=== PATIENT | male | born 1980 | race Native Hawaiian/Other Pacific Islander ===

== ENCOUNTER 2023-05-12 13:55 | Emergency (ER) | payer OTHER, MEDICAID, SELFPAY ==
[2023-05-12 14:07] VITALS: BP 161/101; PULSE 93; RESP 18; TEMP 36.7; O2SAT 98; BMI 29.0
[2023-05-12 14:41] LABS: Add Manual Diff / Slide Review NO; Basophils Absolute Auto 100 /uL (0-100); Basophils Percent Auto 0.9 % (0-2); Eosinophils Absolute Auto 100 /uL (0-450); Eosinophils Percent Auto 1.7 % (2-4); Hematocrit 51.8 % (41-53); Hemoglobin 17.9 g/dL (13.5-17.5); Lymphocytes Absolute Auto 1600 /uL (1100-4500); Lymphocytes Percent Auto 23.6 % (25-40); Mean Corpuscular HGB Conc 34.6 % (30-36); Mean Corpuscular Hemoglobin 29.7 PG (26-34); Monocytes Absolute Auto 500 /uL (0-900); Monocytes Percent Auto 7.8 % (3-14); Neutrophils Absolute Auto 4400 /uL (1500-7000); Platelet Count 218 X10^3/uL (150-400); Red Blood Cell Count 6.02 X10^6/uL (4.5-5.9); Red Cell Distribution Width 13.4 % (11.6-14.8); White Blood Cell Count 6.6 X10^3/uL (4.5-11.0)
[2023-05-12 14:48] LABS: Prothrombin Time 11.2 SECONDS (10.1-12.7)
[2023-05-12 14:50] LABS: PTT Partial Thromboplastin Tim 34 SECONDS (26-36)
[2023-05-12 14:54] LABS: Alanine Aminotransferase 30 IU/L (<50); Albumin 4.4 g/dL (3.5-5.0); Albumin Globulin Ratio 1.4 (1.0-2.8); Alkaline Phosphatase 66 U/L (38-126); Aspartate Aminotransferase 34 IU/L (17-59); BUN Creatinine Ratio 19.7 (6-22); Bilirubin Total 1.2 mg/dL (0.2-1.3); Blood Urea Nitrogen 14 mg/dL (9-20); Calcium 9.1 mg/dL (8.4-10.2); Carbon Dioxide 26 mmol/L (22-32); Chloride 103 mmol/L (98-107); Estimated Glomerular Filt Rate > 60 mL/min (>60); Globulin 3.2 g/dL (1.7-4.1); Glucose 128 mg/dL (70-100); HEMOLYSIS 44 (0-50); Potassium 3.6 mmol/L (3.4-5.1); Sodium 139 mmol/L (137-145); Total Protein 7.6 g/dL (6.3-8.2)
--- NOTE | 2023-05-12 15:35 | ED.GIBLEED ---
HPI - GI Bleed <Newton Ross PA-C - Last Filed: 05/12/23 16:25> General Chief complaint: GI Bleed Stated complaint: stomach hurting massive headache black stool Time Seen by Provider: 05/12/23 15:14 Source: patient Mode of arrival: Ambulatory History of Present Illness HPI Narrative: 42-year-old male with past medical history H pylori presents to the ED with 1 week of epigastric pain. Patient states that he feels constipated, his stools are dark and tarry over the last several days. Patient was seen on 05/08/2023 at [facility] ED, discharged home with a diagnosis of possible gastroenteritis. Patient had normal labs, CT scan showed some mild gastroenteritis. Patient was prescribed esomeprazole and Vicodin for pain relief. Patient is back in the ED today, unsure if he has taken the acid blockers. Patient complains of the same symptoms which include epigastric pain, a headache. Patient denies fever, chills, nausea, vomiting, flank pain, dysuria, lightheadedness, dizziness, syncope. Related Data Allergies Allergy/AdvReac Type Severity Reaction Status Date / Time No Known Drug Allergies Allergy Verified 05/12/23 14:07 Review of Systems <Newton Ross PA-C - Last Filed: 05/12/23 16:25> Constitutional Constitutional: Denies chills, Denies fatigue, Denies fever(s), Denies frequent falls, Denies lethargy and Denies weakness Eyes Eyes: Denies change in vision, Denies eye discharge, Denies irritation and Denies loss of vision ENT Ears, Nose, Mouth, and Throat: Denies change in voice, Denies dizziness, Denies neck pain, Denies sore throat and Denies throat swelling Cardiovascular Cardiovascular: Denies chest pain, Denies irregular heart rhythm, Denies lightheadedness, Denies palpitations, Denies dyspnea, Denies dyspnea on exertion and Denies orthopnea Respiratory Respiratory: Denies cough, Denies dyspnea, Denies dyspnea on exertion and Denies wheezing Gastrointestinal Gastrointestinal: Reports abdominal pain, Reports melena, Denies change in bowel habits, Reports constipation, Denies diarrhea, Denies nausea and Denies vomiting Musculoskeletal Musculoskeletal: Denies neck pain and Denies numbness Integumentary/Breasts Skin/Breast: Denies pruritus, Denies erythema, Denies rash and Denies wounds Neurologic Neurologic: Denies behavioral changes, Denies confusion, Denies dizziness, Denies frequent falls, Denies loss of vision, Denies numbness and Denies weakness Psychiatric Psychiatric: Denies anxiety, Denies behavioral changes, Denies confusion, Denies depression, Denies homicidal ideation and Denies suicidal ideation Endocrine Endocrine: Denies fatigue, Denies flushing and Denies palpitations Hematologic/Lymphatic Hematologic/Lymphatic: Denies easy bruising Allergic/Immunologic Allergic/Immunologic: Denies urticaria, Denies throat swelling and Denies wheezing Patient History <Newton Ross PA-C - Last Filed: 05/12/23 16:25> Social History Smoking Status: Current every day smoker Smoking Status: Current every day smoker tobacco type: cigarettes Exam <Newton Ross PA-C - Last Filed: 05/12/23 16:25> Narrative Exam Narrative: Const General:?cooperative, healthy appearing and comfortable [facility] Head:?normal to inspection Ears:?hearing grossly normal bilaterally Nose:?external nose normal Face and sinus:?normal facial exam and sinuses nontender Mouth:?oral mucosae normal Throat:?posterior oropharynx normal Eyes General:?appearance normal, both eyes and all related structures Neck Neck:?normal visual inspection and no lymphadenopathy noted Resp Effort & Inspection:?normal respiratory effort Auscultation:?clear to auscultation bilaterally Cardio Rate:?regular rate Rhythm:?regular rhythm GI Abdomen is soft, nondistended, nontender to palpation. There is no CVA tenderness. Neuro General:?patient alert, patient awake and patient oriented x3 Initial Vital Signs Initial Vital Signs: Vital Signs Temperature 98.1 F 05/12/23 14:07 Pulse Rate 93 H 05/12/23 14:07 Respiratory Rate 18 05/12/23 14:07 Blood Pressure 161/101 H 05/12/23 14:07 Pulse Oximetry 98 05/12/23 14:07 Oxygen Delivery Method Room Air 05/12/23 14:07 <Veda Bhagat DO - Last Filed: 05/20/23 00:35> Initial Vital Signs Initial Vital Signs: Vital Signs Temperature 98.1 F 05/12/23 14:07 Pulse Rate 93 H 05/12/23 14:07 Respiratory Rate 18 05/12/23 14:07 Blood Pressure 161/101 H 05/12/23 14:07 Pulse Oximetry 98 05/12/23 14:07 Oxygen Delivery Method Room Air 05/12/23 14:07 Course <Newton Ross PA-C - Last Filed: 05/12/23 16:25> Orders Ordered: Discontinued Medications Acetaminophen (Acetaminophen 325 Mg Tablet) 975 mg PO NOW ONE Stop: 05/12/23 15:42 Last Admin: 05/12/23 15:58 Dose: 975 mg Documented By: RACHEL Al Hydrox/Mg Hydrox/Simethicone 20 ml/ Lidocaine HCl 15 ml 0 ml PO NOW ONE Stop: 05/12/23 15:34 Last Admin: 05/12/23 16:08 Dose: 45 ml Documented By: RACHEL Famotidine (Famotidine 20 Mg Tablet) 40 mg PO NOW ONE Stop: 05/12/23 15:35 Last Admin: 05/12/23 15:59 Dose: 40 mg Documented By: RACHEL Ketorolac Tromethamine (Ketorolac 30 Mg/Ml Vial) 30 mg IM NOW ONE Stop: 05/12/23 15:42 Last Admin: 05/12/23 15:58 Dose: 30 mg Documented By: RACHEL Ondansetron HCl (Ondansetron 4 Mg/2 Ml Inj) 4 mg IV NOW PRN PRN Reason: Nausea And Vomiting Ondansetron HCl (Ondansetron 4 Mg Odt) 4 mg SL NOW PRN PRN Reason: Nausea And Vomiting Pantoprazole Sodium (Pantoprazole 40 Mg Vial) 80 mg IV NOW ONE Stop: 05/12/23 14:13 Last Admin: 05/12/23 15:54 Dose: Not Given Documented By: RACHEL Vital Signs Vital signs: Vital Signs - 8 hr 05/12/23 14:07 Temperature 98.1 F Pulse Rate 93 H Respiratory Rate 18 Blood Pressure 161/101 H Pulse Oximetry 98 Oxygen Delivery Method Room Air <Veda Bhagat DO - Last Filed: 05/20/23 00:35> Orders Ordered: Discontinued Medications Acetaminophen (Acetaminophen 325 Mg Tablet) 975 mg PO NOW ONE Stop: 05/12/23 15:42 Last Admin: 05/12/23 15:58 Dose: 975 mg Documented By: RACHEL Al Hydrox/Mg Hydrox/Simethicone 20 ml/ Lidocaine HCl 15 ml 0 ml PO NOW ONE Stop: 05/12/23 15:34 Last Admin: 05/12/23 16:08 Dose: 45 ml Documented By: RACHEL Famotidine (Famotidine 20 Mg Tablet) 40 mg PO NOW ONE Stop: 05/12/23 15:35 Last Admin: 05/12/23 15:59 Dose: 40 mg Documented By: RACHEL Ketorolac Tromethamine (Ketorolac 30 Mg/Ml Vial) 30 mg IM NOW ONE Stop: 05/12/23 15:42 Last Admin: 05/12/23 15:58 Dose: 30 mg Documented By: RACHEL Ondansetron HCl (Ondansetron 4 Mg/2 Ml Inj) 4 mg IV NOW PRN PRN Reason: Nausea And Vomiting Ondansetron HCl (Ondansetron 4 Mg Odt) 4 mg SL NOW PRN PRN Reason: Nausea And Vomiting Pantoprazole Sodium (Pantoprazole 40 Mg Vial) 80 mg IV NOW ONE Stop: 05/12/23 14:13 Last Admin: 05/12/23 15:54 Dose: Not Given Documented By: RACHEL Vital Signs Vital signs: Vital Signs - 8 hr 05/12/23 14:07 Temperature 98.1 F Pulse Rate 93 H Respiratory Rate 18 Blood Pressure 161/101 H Pulse Oximetry 98 Oxygen Delivery Method Room Air MDM - GI Bleed <Newton Ross PA-C - Last Filed: 05/12/23 16:25> Lab Data 05/12/23 14:26 05/12/23 14:26 Labs: Lab Results 05/12/23 05/12/23 Range/Units 14:26 15:45 WBC 6.6 (4.5-11.0) X10^3/uL RBC 6.02 H (4.5-5.9) X10^6/uL Hgb 17.9 H (13.5-17.5) g/dL Hct 51.8 (41-53) % MCV 86.0 (80-100) fL MCH 29.7 (26-34) PG MCHC 34.6 (30-36) % RDW 13.4 (11.6-14.8) % Plt Count 218 (150-400) X10^3/uL Neut % (Auto) 66.0 (50-75) % Lymph % (Auto) 23.6 L (25-40) % [place] % (Auto) 7.8 (3-14) % Eos % (Auto) 1.7 L (2-4) % Baso % (Auto) 0.9 (0-2) % Neut # (Auto) 4400 (8739-0069) /uL Lymph # (Auto) 1600 (7314-9899) /uL [place] # (Auto) 500 (0-900) /uL Eos # (Auto) 100 (0-450) /uL Baso # (Auto) 100 (0-100) /uL PT 11.2 (10.1-12.7) SECONDS INR 1.0 (0.9-1.3) APTT 34 (26-36) SECONDS Sodium 139 (137-145) mmol/L Potassium 3.6 (3.4-5.1) mmol/L Chloride 103 (98-107) mmol/L Carbon Dioxide 26 (22-32) mmol/L BUN 14 (9-20) mg/dL Creatinine 0.71 (0.66-1.25) mg/dL Estimated GFR > 60 (>60) mL/min BUN/Creatinine Ratio 19.7 (6-22) Glucose 128 H (70-100) mg/dL Calcium 9.1 (8.4-10.2) mg/dL Total Bilirubin 1.2 (0.2-1.3) mg/dL AST 34 (17-59) IU/L ALT 30 (<50) IU/L Alkaline Phosphatase 66 (38-126) U/L Total Protein 7.6 (6.3-8.2) g/dL Albumin 4.4 (3.5-5.0) g/dL Globulin 3.2 (1.7-4.1) g/dL Albumin/Globulin Ratio 1.4 (1.0-2.8) Lipase 343 H (23-300) U/L Blood Type O Positive Antibody Screen Negative MDM Narrative Medical decision making narrative: 42-year-old male with past medical history H pylori presents to the ED with 1 week of epigastric pain. Concern for H pylori vs gastritis vs peptic ulcer vs GERD versus other. Unlikely pancreatitis since patient had a full workup with negative lipase and normal CT. Will give Pepcid AC, GI cocktail, Toradol, Tylenol for symptoms. Will obtain labs to recheck H&H. H&H is stable compared to the numbers from his [facility] ED visit. Lipase elevated to 343, however not high enough to be indicative of pancreatitis. All other labs within normal limits as well. Recommend continued use of acid blockers. Recommend follow-up with GI. ED return precautions discussed with patient. Patient verbalized understanding. Medical records reviewed: Yes <Veda Bhagat, DO - Last Filed: 05/20/23 00:35> Lab Data Labs: Lab Results 05/12/23 05/12/23 Range/Units 14:26 15:45 WBC 6.6 (4.5-11.0) X10^3/uL RBC 6.02 H (4.5-5.9) X10^6/uL Hgb 17.9 H (13.5-17.5) g/dL Hct 51.8 (41-53) % MCV 86.0 (80-100) fL MCH 29.7 (26-34) PG MCHC 34.6 (30-36) % RDW 13.4 (11.6-14.8) % Plt Count 218 (150-400) X10^3/uL Neut % (Auto) 66.0 (50-75) % Lymph % (Auto) 23.6 L (25-40) % [place] % (Auto) 7.8 (3-14) % Eos % (Auto) 1.7 L (2-4) % Baso % (Auto) 0.9 (0-2) % Neut # (Auto) 4400 (0406-2118) /uL Lymph # (Auto) 1600 (9843-3946) /uL [place] # (Auto) 500 (0-900) /uL Eos # (Auto) 100 (0-450) /uL Baso # (Auto) 100 (0-100) /uL PT 11.2 (10.1-12.7) SECONDS INR 1.0 (0.9-1.3) APTT 34 (26-36) SECONDS Sodium 139 (137-145) mmol/L Potassium 3.6 (3.4-5.1) mmol/L Chloride 103 (98-107) mmol/L Carbon Dioxide 26 (22-32) mmol/L BUN 14 (9-20) mg/dL Creatinine 0.71 (0.66-1.25) mg/dL Estimated GFR > 60 (>60) mL/min BUN/Creatinine Ratio 19.7 (6-22) Glucose 128 H (70-100) mg/dL Calcium 9.1 (8.4-10.2) mg/dL Total Bilirubin 1.2 (0.2-1.3) mg/dL AST 34 (17-59) IU/L ALT 30 (<50) IU/L Alkaline Phosphatase 66 (38-126) U/L Total Protein 7.6 (6.3-8.2) g/dL Albumin 4.4 (3.5-5.0) g/dL Globulin 3.2 (1.7-4.1) g/dL Albumin/Globulin Ratio 1.4 (1.0-2.8) Lipase 343 H (23-300) U/L Blood Type O Positive Antibody Screen Negative Discharge Plan Departure Patient Disposition: Home Clinical Impression: Epigastric pain Instructions: DI for Epigastric Pain Activity Restrictions/Additional Instructions: You were evaluated in the ED today for abdominal pain and a headache. Your labs were normal today. Your symptoms could be due to gastroenteritis which can be caused by food poisoning, acid reflux, gastritis, or H pylori. Please follow-up with your primary care provider and GI specialist for further evaluation. Please continue to take the acid renetta as prescribed for the next month. Return to the ED if you have worsening symptoms, lightheadedness, shortness of breath. Referrals: Miscellaneous,Doctor, MD [Primary Care Provider] - Stand Alone Forms: Patient Portal/API ED Sign-out <Veda Bhagat DO - Last Filed: 05/20/23 00:35> Cosign ED Attending Rupesh Attestation: I was immediately available in the department for consultation.
[2023-05-12] MEDS: KETOROLAC 30 MG/ML VIAL IM (15:58)
[2023-05-12] MEDS: ACETAMINOPHEN 325 MG TABLET 975 MG PO (15:58)
[2023-05-12] MEDS: FAMOTIDINE 20 MG TABLET 40 MG PO (15:59)
[2023-05-12 16:02] LABS: Lipase 343 U/L (23-300)
[2023-05-12] MEDS: MAG HYDROX/ALUMINUM/SIMETH SUS 20 ML, LIDOCAINE VISCOUS 2% 15 ML PO (16:08)
--- NOTE | 2023-05-12 16:27 | PC.NURSE ---
NIO placed, but not placed by provider Cody. Provider Cody did not want those orders to be done. see provider note for assessment. Pt tolerating PO fluids well. no acute medical distress noted. awake, alert, airway patent, abd soft, non tender, endorses burning in epigastric region consistent with GERD, medicated per emar.
[2023-05-12 16:33] VITALS: BP 160/90; PULSE 83; RESP 18; O2SAT 98
== END 2023-05-12 16:34 | disposition home or self-care (01) ==
PROVIDERS: Emergency Medicine; Emergency Provider Student in an Organized Health Care Education/Training Program
DX: R10.13 Epigastric pain (principal); R51.9 Headache, unspecified
CPT/HCPCS: 80053; 83690; 85025; 85610; 85730; 86850; 86900; 86901; 93005; 96372; 99283; 99284; A9270; J1885

== ENCOUNTER 2023-12-30 22:26 | Emergency (ER) | payer OTHER, MEDICAID, SELFPAY ==
[2023-12-30] VITALS (21 sets, daily range): BP systolic 111–155; BP diastolic 73–101; PULSE 87–98; RESP 28–54; TEMP 35.9; O2SAT 97–100; BMI 27.3
--- NOTE | 2023-12-30 22:29 | EKG_ITS ---
[address] [address] Test Date: 2023-12-30 Pat Name: Antonio Arnold Department: Room: Gender: Male [employer]: : 1980 Requested By: Order Number: [id number] Reading MD: Stan Arellano Measurements Intervals [place] Rate: 98 P: 77 NV: 162 QRS: -21 QRSD: 92 T: 217 QT: 414 QTc: 528 Interpretive Statements Sinus rhythm with premature atrial complexes Possible Left atrial enlargement Minimal voltage criteria for LVH, may be normal variant ( Trout product ) Marked T wave abnormality, consider anterolateral ischemia Prolonged QT (transferred to [facility] for ACS) Electronically Signed On 12-31-2023 15:10:07 PDT by Stan Arellano
--- NOTE | 2023-12-30 22:33 | DI.RAD.S_ITS ---
PROCEDURE: XR CHEST 1V INDICATIONS: chest pain TECHNIQUE: One view of the chest was acquired. COMPARISON: [facility], , CHEST 2 VIEW, 10/24/2015, 11:54. FINDINGS: Surgical changes and devices: Median sternotomy wires are seen. Lungs and pleura: Mild pulmonary vascular congestion is noted. No focal infiltrate. No pleural effusions or pneumothorax. Mediastinum: Mediastinal contours appear normal. Heart size is mildly enlarged. Bones and chest wall: No suspicious bony lesions. Overlying soft tissues appear unremarkable. IMPRESSION: Cardiomegaly and mild congestion. No focal infiltrate, pleural effusion or pneumothorax. Dictated by: Cory Phelps M.D. on 12/30/2023 at 22:48 Approved by: Cory Phelps M.D. on 12/30/2023 at 22:49
[2023-12-30] MEDS: ASPIRIN 81 MG CHEW TAB 324 MG PO (22:44)
[2023-12-30 22:48] LABS: Add Manual Diff / Slide Review NO; Basophils Absolute Auto 0 /uL (0-100); Basophils Percent Auto 0.4 % (0-2); Eosinophils Absolute Auto 0 /uL (0-450); Eosinophils Percent Auto 0.4 % (2-4); Hematocrit 51.2 % (41-53); Hemoglobin 17.2 g/dL (13.5-17.5); Lymphocytes Absolute Auto 1400 /uL (1100-4500); Lymphocytes Percent Auto 11.2 % (25-40); Mean Corpuscular HGB Conc 33.5 % (30-36); Mean Corpuscular Hemoglobin 29.8 PG (26-34); Mean Corpuscular Volume 89.1 fL (80-100); Monocytes Absolute Auto 800 /uL (0-900); Monocytes Percent Auto 6.7 % (3-14); Neutrophils Absolute Auto 10000 /uL (1500-7000); Neutrophils Percent Auto 81.3 % (50-75); Platelet Count 211 X10^3/uL (150-400); Red Blood Cell Count 5.75 X10^6/uL (4.5-5.9); Red Cell Distribution Width 13.5 % (11.6-14.8); White Blood Cell Count 12.3 X10^3/uL (4.5-11.0)
[2023-12-30 22:50] LABS: INR 1.1 (0.9-1.3)
[2023-12-30 22:52] LABS: PTT Partial Thromboplastin Tim 31 SECONDS (25.1-36.5)
[2023-12-30 22:55] LABS: Alanine Aminotransferase 58 IU/L (<50); Albumin 4.1 g/dL (3.5-5.0); Albumin Globulin Ratio 1.4 (1.0-2.8); Alkaline Phosphatase 80 U/L (38-126); Aspartate Aminotransferase 33 IU/L (17-59); BUN Creatinine Ratio 14.9 (6-22); Bilirubin Total 1.1 mg/dL (0.2-1.3); Blood Urea Nitrogen 14 mg/dL (9-20); Carbon Dioxide 29 mmol/L (22-32); Chloride 104 mmol/L (98-107); Creatine Kinase 79 U/L (55-170); Estimated Glomerular Filt Rate > 60 mL/min (>60); Glucose 137 mg/dL (70-100); HEMOLYSIS < 15 (0-50); Lipase 108 U/L (23-300); Magnesium 1.9 mg/dL (1.6-2.3); Potassium 3.4 mmol/L (3.4-5.1); Sodium 138 mmol/L (137-145); Total Protein 7.1 g/dL (6.3-8.2)
[2023-12-30] MEDS: NITROGLYCERIN 0.4 MG SL TAB SL (23:02)
--- NOTE | 2023-12-30 23:05 | ED.CHESTPAIN ---
HPI - Chest Pain General Chief Complaint: Chest Pain Stated Complaint: Chest pain, abdominal Time Seen by Provider: 12/30/23 22:47 Source: patient Mode of arrival: Ambulatory History of Present Illness HPI narrative: 42-year-old male with history congenital heart disease treated age 15 at [facility] in [facility], has had recent dry cough for 3 days, seen at [facility] on 12/27/2023 with respiratory illness symptoms, negative respiratory swab, negative chest x-ray, sent home, no EKG your labs done per patient, still coughing, still feeling some shortness of breath, and over the last few hours having left-sided chest discomfort, nonpleuritic, but some radiation to the left back, left scapula, left upper quadrant. Denies pain to right or left leg. No history of aortic problems known. He does not know the nature of his congenital heart disease, believes there were ?holes? in his heart that were repaired, does not recognize VSD and/or ASD diagnoses. He believes there was only a single procedure done at age 15. He has not aware of any heart valve being replaced. He has not aware of any aortic surgeries or aorta problems. Related Data Allergies Allergy/AdvReac Type Severity Reaction Status Date / Time No Known Drug Allergies Allergy Verified 12/30/23 22:32 Review of Systems Review of Systems Narrative: as per HPI Patient History Social History Smoking Status: Current every day smoker Smoking Status: Current every day smoker tobacco type: cigarettes Exam Narrative Exam Narrative: GENERAL: Well-developed patient, in moderate distress, diaphoretic. HEAD: Atraumatic. Normocephalic. EYES: Pupils equal round and reactive. Extraocular motions intact. No scleral icterus. No injection or drainage. ENT: Nose without bleeding, purulent drainage. Throat without erythema, tonsillar hypertrophy or exudate. Airway patent. NECK: Trachea midline. Non tender CARDIOVASCULAR: Regular rate and rhythm without murmurs, gallops, or rubs. RESPIRATORY: Clear to auscultation. Breath sounds equal bilaterally. No wheezes, rales, or rhonchi. Well-healed old sternotomy scar GASTROINTESTINAL: Abdomen soft, non-tender, nondistended. EXTREMITIES: No edema or joint tenderness. BACK: Nontender without deformity or crepitance. No flank tenderness. NEURO: AOx3. SKIN: No rash or erythema of visible areas Initial Vital Signs Initial Vital Signs: Vital Signs Temperature 96.7 F L 12/30/23 22:30 Pulse Rate 98 H 12/30/23 22:30 Respiratory Rate 28 H 12/30/23 22:30 Pulse Oximetry 100 12/30/23 22:30 Oxygen Delivery Method Room Air 12/30/23 22:30 Course Orders Ordered: ED Orders 12/31/23 06:50 PTT [PTT Partial Thromboplastin Loco] Stat Discontinued Medications Aspirin (Aspirin 81 Mg Chew Tab) 324 mg PO NOW ONE Stop: 12/30/23 22:34 Last Admin: 12/30/23 22:44 Dose: 324 mg Documented By: ISAIAH Aspirin (Aspirin Ec 325 Mg Tablet) 325 mg PO NOW ONE Stop: 12/31/23 00:17 Last Admin: 12/31/23 00:23 Dose: Not Given Documented By: ISAIAH Heparin Sodium (Porcine) (Heparin 5,000 Unit/Ml Vial) 4,000 unit 50 unit/kg (4000 unit) IV NOW ONE Stop: 12/31/23 00:18 Last Admin: 12/31/23 00:43 Dose: Not Given Documented By: ISAIAH Heparin Sodium (Porcine) (Heparin 5,000 Unit/Ml Vial) 5,000 unit 50 unit/kg (4000 unit) IV NOW ONE Stop: 12/31/23 00:46 Last Admin: 12/31/23 00:53 Dose: 5,000 unit Documented By: ISAIAH Sodium Chloride (Normal Saline 0.9%) 1,000 mls @ 1,000 mls/hr IV BOLUS ONE Stop: 12/31/23 00:12 Last Infusion: 12/31/23 00:44 Dose: Infused Documented By: Admin: 12/30/23 23:24 Dose: 1,000 mls/hr Documented By: ISAIAH Nitroglycerin (Nitroglycerin) 50 mg in 250 mls @ 1.5 mls/hr IV TITRATE FEROZ; Protocol Last Titration: 12/31/23 07:59 Dose: 17.5 mcg/min, 5.25 mls/hr Documented By: Titration: 12/31/23 02:56 Dose: 17.5 mcg/min, 5.25 mls/hr Documented By: Titration: 12/31/23 02:37 Dose: 15 mcg/min, 4.5 mls/hr Documented By: Titration: 12/31/23 02:05 Dose: 12.5 mcg/min, 3.75 mls/hr Documented By: Titration: 12/31/23 01:42 Dose: 10 mcg/min, 3 mls/hr Documented By: Admin: 12/31/23 00:50 Dose: 5 mcg/min, 1.5 mls/hr Documented By: ISAIAH Heparin Sodium/Dextrose (Heparin Drip) 25,000 unit in 500 mls @ 19.051 mls/hr IV CONT FEROZ; Protocol Last Titration: 12/31/23 07:59 Dose: 12 units/kg/hr, 19.051 mls/hr Documented By: AYAAN Co-signed By: IVY Admin: 12/31/23 00:46 Dose: 12 units/kg/hr, 19.051 mls/hr Documented By: ISAIAH Co-signed By: Lorazepam (Lorazepam 2 Mg/Ml Inj) 0.5 mg IV NOW ONE Stop: 12/31/23 04:40 Last Admin: 12/31/23 04:44 Dose: 0.5 mg Documented By: Metoprolol Tartrate (Metoprolol Tartrate 5 Mg/5 Ml Inj) 5 mg IV NOW ONE Stop: 12/31/23 00:16 Last Admin: 12/31/23 00:31 Dose: 5 mg Documented By: ISAIAH Morphine Sulfate (Morphine 4 Mg/Ml Inj) 4 mg IV NOW ONE Stop: 12/30/23 23:09 Last Admin: 12/30/23 23:11 Dose: 4 mg Documented By: CHRISTOPHER Morphine Sulfate (Morphine 4 Mg/Ml Inj) 4 mg IV NOW ONE Stop: 12/30/23 23:32 Last Admin: 12/30/23 23:44 Dose: 4 mg Documented By: ISAIAH Morphine Sulfate (Morphine 4 Mg/Ml Inj) 4 mg IV NOW ONE Stop: 12/31/23 01:55 Last Admin: 12/31/23 02:01 Dose: 4 mg Documented By: Nitroglycerin (Nitroglycerin 0.4 Mg Sl Tab) 0.4 mg SL [id number] PRN PRN Reason: Chest Pain Last Admin: 12/30/23 23:02 Dose: 0.4 mg Documented By: [facility] Vital Signs Vital signs: Vital Signs - 8 hr 12/30/23 23:30 12/30/23 23:44 12/30/23 23:45 Pulse Rate 95 H 93 H 94 H Respiratory Rate 47 H 31 H Blood Pressure Pulse Oximetry 97 97 100 12/30/23 23:46 12/30/23 23:46 12/30/23 23:50 Pulse Rate 91 H 92 H Respiratory Rate 45 H 43 H Blood Pressure 118/73 Pulse Oximetry 99 98 12/30/23 23:55 12/31/23 00:00 12/31/23 00:01 Pulse Rate 93 H 95 H Respiratory Rate 42 H 37 H Blood Pressure 117/99 H Pulse Oximetry 98 99 12/31/23 00:01 12/31/23 00:05 12/31/23 00:10 Pulse Rate 95 H 93 H 95 H Respiratory Rate 44 H 44 H 41 H Blood Pressure Pulse Oximetry 99 98 98 12/31/23 00:15 12/31/23 00:20 12/31/23 00:28 Pulse Rate 97 H 96 H 95 H Respiratory Rate 35 H 27 H 60 H Blood Pressure Pulse Oximetry 98 98 81 L 12/31/23 00:30 12/31/23 00:30 12/31/23 00:35 Pulse Rate 97 H 93 H Respiratory Rate 46 H 34 H Blood Pressure 142/92 H Pulse Oximetry 100 100 12/31/23 00:39 12/31/23 00:40 12/31/23 00:40 Pulse Rate 84 81 Respiratory Rate 20 29 H Blood Pressure 131/76 Pulse Oximetry 99 100 12/31/23 00:45 12/31/23 00:45 12/31/23 00:50 Pulse Rate 88 Respiratory Rate 28 H Blood Pressure 129/87 118/86 Pulse Oximetry 100 12/31/23 00:50 12/31/23 00:55 12/31/23 01:00 Pulse Rate 85 87 Respiratory Rate 40 H 34 H Blood Pressure 126/94 H Pulse Oximetry 99 98 12/31/23 01:00 12/31/23 01:30 12/31/23 01:30 Pulse Rate 91 H 85 Respiratory Rate 43 H 30 H Blood Pressure 130/92 H Pulse Oximetry 98 99 12/31/23 02:00 12/31/23 02:00 12/31/23 02:21 Pulse Rate 90 92 H Respiratory Rate 44 H 37 H Blood Pressure 118/78 Pulse Oximetry 98 97 12/31/23 02:21 12/31/23 02:30 12/31/23 02:30 Pulse Rate 91 H Respiratory Rate 33 H Blood Pressure 110/55 L 125/68 Pulse Oximetry 98 12/31/23 02:58 12/31/23 02:58 12/31/23 03:00 Pulse Rate 89 93 H Respiratory Rate 27 H 32 H Blood Pressure 114/70 Pulse Oximetry 99 99 12/31/23 03:10 12/31/23 03:10 12/31/23 03:15 Pulse Rate 84 81 Respiratory Rate 33 H 32 H Blood Pressure 121/74 Pulse Oximetry 98 98 12/31/23 03:20 12/31/23 03:20 12/31/23 03:30 Pulse Rate 82 Respiratory Rate 32 H Blood Pressure 114/66 110/71 Pulse Oximetry 98 12/31/23 03:30 12/31/23 03:40 12/31/23 03:40 Pulse Rate 82 86 Respiratory Rate 32 H 38 H Blood Pressure 118/65 Pulse Oximetry 98 98 12/31/23 03:45 12/31/23 03:50 12/31/23 03:50 Pulse Rate 85 86 Respiratory Rate 31 H 30 H Blood Pressure 115/65 Pulse Oximetry 97 97 12/31/23 04:00 12/31/23 04:00 12/31/23 04:10 Pulse Rate 89 Respiratory Rate 28 H Blood Pressure 109/65 117/69 Pulse Oximetry 95 12/31/23 04:10 12/31/23 04:15 12/31/23 04:20 Pulse Rate 93 H 93 H Respiratory Rate 37 H 37 H Blood Pressure 117/68 Pulse Oximetry 95 95 12/31/23 04:20 12/31/23 04:30 12/31/23 04:30 Pulse Rate 92 H 90 Respiratory Rate 35 H 18 Blood Pressure 118/73 Pulse Oximetry 98 98 12/31/23 04:40 12/31/23 04:40 12/31/23 04:45 Pulse Rate 93 H 90 Respiratory Rate 18 20 Blood Pressure 124/79 Pulse Oximetry 98 97 12/31/23 04:50 12/31/23 04:50 12/31/23 05:00 Pulse Rate 88 Respiratory Rate 18 Blood Pressure 124/63 109/66 Pulse Oximetry 96 12/31/23 05:00 12/31/23 05:10 12/31/23 05:10 Pulse Rate 86 87 Respiratory Rate 29 H 29 H Blood Pressure 114/72 Pulse Oximetry 95 96 12/31/23 05:21 12/31/23 05:21 12/31/23 05:30 Pulse Rate 91 H Respiratory Rate 18 Blood Pressure 114/69 108/71 Pulse Oximetry 96 12/31/23 05:30 12/31/23 05:41 12/31/23 05:41 Pulse Rate 90 90 Respiratory Rate 28 H 32 H Blood Pressure 123/90 Pulse Oximetry 96 95 12/31/23 05:45 12/31/23 05:50 12/31/23 05:50 Pulse Rate 90 89 Respiratory Rate 33 H 30 H Blood Pressure 110/71 Pulse Oximetry 98 96 12/31/23 06:00 12/31/23 06:00 12/31/23 06:10 Pulse Rate 88 Respiratory Rate 30 H Blood Pressure 112/67 110/69 Pulse Oximetry 98 12/31/23 06:10 Pulse Rate 86 Respiratory Rate 31 H Blood Pressure Pulse Oximetry 97 MDM - Chest Pain Differential Diagnosis Differential diagnosis: Likely pneumothorax, unstable angina pectoris, atypical chest pain, costochondritis, chest pain and other Lab Data Attestation: I reviewed the patient's lab results. 12/31/23 06:23 12/30/23 22:31 Labs: Lab Results 12/30/23 12/31/23 12/31/23 Range/Units 22:31 00:22 00:25 WBC 12.3 H (4.5-11.0) X10^3/uL RBC 5.75 (4.5-5.9) X10^6/uL Hgb 17.2 (13.5-17.5) g/dL Hct 51.2 (41-53) % MCV 89.1 (80-100) fL MCH 29.8 (26-34) PG MCHC 33.5 (30-36) % RDW 13.5 (11.6-14.8) % Plt Count 211 (150-400) X10^3/uL Neut % (Auto) 81.3 H (50-75) % Lymph % (Auto) 11.2 L (25-40) % [place] % (Auto) 6.7 (3-14) % Eos % (Auto) 0.4 L (2-4) % Baso % (Auto) 0.4 (0-2) % Neut # (Auto) 32401 H (6944-8277) /uL Lymph # (Auto) 1400 (2355-2576) /uL [place] # (Auto) 800 (0-900) /uL Eos # (Auto) 0 (0-450) /uL Baso # (Auto) 0 (0-100) /uL PT 13.0 H (9.4-12.5) SECONDS INR 1.1 (0.9-1.3) APTT 31 (25.1-36.5) SECONDS Sodium 138 (137-145) mmol/L Potassium 3.4 (3.4-5.1) mmol/L Chloride 104 (98-107) mmol/L Carbon Dioxide 29 (22-32) mmol/L BUN 14 (9-20) mg/dL Creatinine 0.94 (0.66-1.25) mg/dL Estimated GFR > 60 (>60) mL/min BUN/Creatinine Ratio 14.9 (6-22) Glucose 137 H (70-100) mg/dL Calcium 9.0 (8.4-10.2) mg/dL Magnesium 1.9 (1.6-2.3) mg/dL Total Bilirubin 1.1 (0.2-1.3) mg/dL AST 33 (17-59) IU/L ALT 58 H (<50) IU/L Alkaline Phosphatase 80 (38-126) U/L Total Creatine Kinase 79 (55-170) U/L Troponin I 0.068 H 0.074 H (0.01-0.034) ng/mL NT-Pro-B Natriuret Pep 4370 H (<125) pg/mL Total Protein 7.1 (6.3-8.2) g/dL Albumin 4.1 (3.5-5.0) g/dL Globulin 3.0 (1.7-4.1) g/dL Albumin/Globulin Ratio 1.4 (1.0-2.8) Lipase 108 (23-300) U/L Urine Color Straw Urine Appearance Clear Urine pH 7.0 (4.5-8.0) Ur Specific Lena <=1.005 (1.000-1.035) Urine Protein Negative (Negative) Urine Glucose (UA) Negative (Negative) g/dL Urine Ketones Negative (NEGATIVE) Urine Occult Blood Negative (Negative) Urine Nitrate Negative (Negative) Urine Bilirubin Negative (NEGATIVE) Urine Urobilinogen 0.2 (0.2) E.U./dL Ur Leukocyte Esterase Negative (NEGATIVE) Urine RBC None seen (0-5/HPF) Urine WBC None seen (0-5/HPF) Ur Squamous Epith Cells None seen (0-5/HPF) Urine Bacteria None seen (None) Ur Culture Indicated? Cult not indicated Vol Urine Centrifuged 10ml (spun) 12/31/23 Range/Units 06:23 WBC (4.5-11.0) X10^3/uL RBC (4.5-5.9) X10^6/uL Hgb 15.6 (13.5-17.5) g/dL Hct 45.2 (41-53) % MCV (80-100) fL MCH (26-34) PG MCHC (30-36) % RDW (11.6-14.8) % Plt Count (150-400) X10^3/uL Neut % (Auto) (50-75) % Lymph % (Auto) (25-40) % [place] % (Auto) (3-14) % Eos % (Auto) (2-4) % Baso % (Auto) (0-2) % Neut # (Auto) (4131-7285) /uL Lymph # (Auto) (5886-6194) /uL [place] # (Auto) (0-900) /uL Eos # (Auto) (0-450) /uL Baso # (Auto) (0-100) /uL PT (9.4-12.5) SECONDS INR (0.9-1.3) APTT 63 H D (25.1-36.5) SECONDS Sodium (137-145) mmol/L Potassium (3.4-5.1) mmol/L Chloride (98-107) mmol/L Carbon Dioxide (22-32) mmol/L BUN (9-20) mg/dL Creatinine (0.66-1.25) mg/dL Estimated GFR (>60) mL/min BUN/Creatinine Ratio (6-22) Glucose (70-100) mg/dL Calcium (8.4-10.2) mg/dL Magnesium (1.6-2.3) mg/dL Total Bilirubin (0.2-1.3) mg/dL AST (17-59) IU/L ALT (<50) IU/L Alkaline Phosphatase (38-126) U/L Total Creatine Kinase (55-170) U/L Troponin I 0.052 H (0.01-0.034) ng/mL NT-Pro-B Natriuret Pep (<125) pg/mL Total Protein (6.3-8.2) g/dL Albumin (3.5-5.0) g/dL Globulin (1.7-4.1) g/dL Albumin/Globulin Ratio (1.0-2.8) Lipase (23-300) U/L Urine Color Urine Appearance Urine pH (4.5-8.0) Ur Specific Lena (1.000-1.035) Urine Protein (Negative) Urine Glucose (UA) (Negative) g/dL Urine Ketones (NEGATIVE) Urine Occult Blood (Negative) Urine Nitrate (Negative) Urine Bilirubin (NEGATIVE) Urine Urobilinogen (0.2) E.U./dL Ur Leukocyte Esterase (NEGATIVE) Urine RBC (0-5/HPF) Urine WBC (0-5/HPF) Ur Squamous Epith Cells (0-5/HPF) Urine Bacteria (None) Ur Culture Indicated? Vol Urine Centrifuged Imaging Data Chest x-ray: My Impression: Cardiomegaly noted, sternal wires noted, no obvious pulmonary infiltrates. ED wet read Radiologist's Impression: [place] [address] XRay Report Signed Patient: Antonio Arnold MR#: [id number] : 1980 Acct:[id number] Age/Sex: 42 / M Date of Service: 12/30/23 Loc: ED Accession Number: [id number] Procedure: XR chest 1V Ordering Provider: Ángel Duckworth MD PROCEDURE: XR CHEST 1V INDICATIONS: chest pain TECHNIQUE: One view of the chest was acquired. COMPARISON: [facility], , CHEST 2 VIEW, 10/24/2015, 11:54. FINDINGS: Surgical changes and devices: Median sternotomy wires are seen. Lungs and pleura: Mild pulmonary vascular congestion is noted. No focal infiltrate. No pleural effusions or pneumothorax. Mediastinum: Mediastinal contours appear normal. Heart size is mildly enlarged. Bones and chest wall: No suspicious bony lesions. Overlying soft tissues appear unremarkable. IMPRESSION: Cardiomegaly and mild congestion. No focal infiltrate, pleural effusion or pneumothorax. Dictated by: Cory Phelps M.D. on 12/30/2023 at 22:48 Approved by: Cory Phelps M.D. on 12/30/2023 at 22:49 CTA Chest Abdomen Pelvis: Radiologist's Impression: [address] [address] [address] Scan Report Signed Patient: Antonio Arnold MR#: [id number] : 1980 Acct:[id number] Age/Sex: 42 / M Date of Service: 12/30/23 Loc: ED Accession Number: [id number] Procedure: CT angio chest abdomen pelvis Ordering Provider: Ángel Duckworth MD PROCEDURE: CT ANGIO CHEST ABDOMEN PELVIS INDICATIONS: chest pain, hx CHD repair age 15, abnormal EKG TECHNIQUE: Precontrast 5 mm thick sections acquired from the lung apices to the iliac crests. After the administration of intravenous contrast, 2.5 mm thick sections again acquired from the lung apices to the iliac crests. Maximum intensity projection (MIP) oblique sagittal and coronal reformats were then acquired. For radiation dose reduction, the following was used: automated exposure control. COMPARISON: [facility], , CHEST 2 VIEW, 10/24/2015, 11:54. [facility], , XR CHEST 1V, 12/30/2023, 22:33. FINDINGS: Image quality: Diagnostic. AORTA: No aortic aneurysm. No acute aortic syndrome. CHEST: Lower Neck: No enlarged lymph nodes. Thyroid: No thyroid nodules which require sonographic evaluation. Axillae: No enlarged lymph nodes. Chest Wall: Medius stenotic me wires are seen. Lungs and Pleura: No pneumothorax or pleural effusions. Dependent atelectasis in posterior aspect of bilateral lung dueñas are seen. No consolidation or suspicious nodules. Heart: Heart size is normal. No pericardial effusion. Thoracic Vessels: Pulmonary arteries demonstrate prominent in size which can be seen associated with pulmonary vascular hypertension. Mediastinum and [place]: No enlarged lymph nodes. Esophagus: No wall thickening. No hiatal hernia. ABDOMEN: Liver: No solid mass. Gallbladder: No radiopaque gallstones or wall thickening. Biliary ducts: No biliary dilation. Pancreas: No ductal dilation. Spleen: Size is within normal limits. Adrenal Glands: No adrenal nodules. Kidneys and Ureters: No hydronephrosis. No solid mass. No complex renal cystic lesion which requires follow up. Stomach and Bowel: There is no bowel obstruction. No abnormal bowel wall thickening or mesenteric fat stranding. Appendix is visualized and is within normal limits. Peritoneum: No abnormal intraperitoneal fluid. No free air. Ventral Wall: No hernia. Abdominal Nodes: No retroperitoneal or mesenteric adenopathy by size criteria. Vessels: Inferior vena cava is normal in size. PELVIS: Pelvic Organs: Unremarkable. Bladder: Unremarkable. Pelvic Nodes: No enlarged lymph nodes. Miscellaneous: No inguinal hernias are seen. Bones: No aggressive appearing bony lesions. No acute vertebral body compression fracture. IMPRESSION: 1. No aortic aneurysm or dissection. 2. Prominent size of main pulmonary artery which can be seen associated with pulmonary vascular hypertension. 3. Dependent atelectasis in posterior aspect of bilateral lung dueñas. Bilateral lungs are otherwise clear. 4. No acute inflammatory process is seen in abdomen or pelvis. No free fluid or free air. Normal appendix. Dictated by: Cory Phelps M.D. on 12/31/2023 at 0:03 Approved by: Cory Phelps M.D. on 12/31/2023 at 0:08 ECG Data Attestation: I personally reviewed and interpreted this ECG as follows: Interpretation: Normal sinus rhythm with rate 98, no obvious ST segment elevation, however significant T-wave inversions noted V3 through V6. Also T-wave inversions noted in lead 1. Also T-wave inversions of less magnitude in inferior leads. Significantly changed from EKG 05/12/2023, with upright T-waves at that time. [facility] Narrative Medical decision making narrative: 42-year-old male with history of remote congenital heart disease repair, does not recall nature of the repair, does not recall VSD versus ASD, does not believe there is any heart valve that was replaced, he believes there were holes in his heart that were repaired in a single surgical procedure at age 15, now with recent days of dry cough and shortness of breath, seen at outside facility 12/27/2023 with negative respiratory panel and chest x-ray evaluation, now with a few hours duration of left-sided chest pain, also radiating to the left back, left scapula, left upper quadrant of the abdomen. No known coronary artery interventions. EKG with anterolateral deep T-waves acute appearing. Diaphoresis noted. Normotensive, no fever. Trial sublingual nitroglycerin, IV morphine. If creatinine favorable would consider CT angiogram chest abdomen and pelvis aortogram study. GFR favorable, CT angio chest abdomen and pelvis study ordered. Keep NPO. [id number], call from [facility] Dr. Jarad bolton, who had been contacted by their ED after EKGs were transmitted, CTA still to be performed here, no vascular surgery available at [facility], likely would need transfer if aortic artery dissection confirmed on CT angiography, otherwise anticipate possible transfer there. He would like to review EKGs, we will transmit them to Dr. Abraham 2354, call back from Dr. Jarad bolton, who reviewed EKGs, believes there is LVH and deep T-wave changes, could be ischemia, if CTA shows no dissection then advises IV Nitroglycerin and heparin and beta-blockade, and transfer. He feels given the congenital heart history that patient might be better treated at larger tertiary center then [facility]. If dissection confirmed then no vascular surgeries available at [facility], would also need transfer. Awaiting CTA aortogram results. 0015, CTA showed no aortic dissection or aneurysmal changes, pulmonary hypertension changes noted, no acute infiltrates. We will start IV heparin per ACS, IV Ntg, IV metoprolol, transfer to tertiary care center for unstable angina in context of remote congenital heart surgery repair 0115, case discussed with [facility] cardiology Dr. Cason who will consult, no other treatments a advised at this time, agrees with transfer to their hospitalist service. 0150, case discussed with [facility] hospitalist Dr. Thurman, accepts patient for transfer, await bed availability 0500, bed available [facility], transfer as planned Critical Care Time Critical Care Time Critical Care Time: Yes Total Critical Care Time: 45 Attestation: The high probability of a clinically significant, sudden or life threatening deterioration of the [cardiopulmonary] system(s) required my full and direct attention, intervention and personal management. The aggregate critical care time was 45 minutes. This time is in addition to time spent performing reported procedures but includes the following: [x] Data Review and interpretation [x] Patient assessment and monitoring of vital signs [x] Documentation [x] Medication orders and management Discharge Plan Departure Patient Disposition: General Acute Hospital Clinical Impression: Chest pain, History of repair of congenital anomaly of heart, Unstable angina pectoris Referrals: Miscellaneous,DoctorMD [Primary Care Provider] -
[2023-12-30 23:06] LABS: NT-proBNP (BNP-Adult 18+) 4370 pg/mL (<125); Troponin I 0.068 ng/mL (0.01-0.034)
[2023-12-30] MEDS: MORPHINE 4 MG/ML INJ IV ×2 (23:11→23:44)
--- NOTE | 2023-12-30 23:12 | DI.CT.S_ITS ---
PROCEDURE: CT ANGIO CHEST ABDOMEN PELVIS INDICATIONS: chest pain, hx CHD repair age 15, abnormal EKG TECHNIQUE: Precontrast 5 mm thick sections acquired from the lung apices to the iliac crests. After the administration of intravenous contrast, 2.5 mm thick sections again acquired from the lung apices to the iliac crests. Maximum intensity projection (MIP) oblique sagittal and coronal reformats were then acquired. For radiation dose reduction, the following was used: automated exposure control. COMPARISON: [facility], , CHEST 2 VIEW, 10/24/2015, 11:54. [facility], , XR CHEST 1V, 12/30/2023, 22:33. FINDINGS: Image quality: Diagnostic. AORTA: No aortic aneurysm. No acute aortic syndrome. CHEST: Lower Neck: No enlarged lymph nodes. Thyroid: No thyroid nodules which require sonographic evaluation. Axillae: No enlarged lymph nodes. Chest Wall: Medius stenotic me wires are seen. Lungs and Pleura: No pneumothorax or pleural effusions. Dependent atelectasis in posterior aspect of bilateral lung dueñas are seen. No consolidation or suspicious nodules. Heart: Heart size is normal. No pericardial effusion. Thoracic Vessels: Pulmonary arteries demonstrate prominent in size which can be seen associated with pulmonary vascular hypertension. Mediastinum and [place]: No enlarged lymph nodes. Esophagus: No wall thickening. No hiatal hernia. ABDOMEN: Liver: No solid mass. Gallbladder: No radiopaque gallstones or wall thickening. Biliary ducts: No biliary dilation. Pancreas: No ductal dilation. Spleen: Size is within normal limits. Adrenal Glands: No adrenal nodules. Kidneys and Ureters: No hydronephrosis. No solid mass. No complex renal cystic lesion which requires follow up. Stomach and Bowel: There is no bowel obstruction. No abnormal bowel wall thickening or mesenteric fat stranding. Appendix is visualized and is within normal limits. Peritoneum: No abnormal intraperitoneal fluid. No free air. Ventral Wall: No hernia. Abdominal Nodes: No retroperitoneal or mesenteric adenopathy by size criteria. Vessels: Inferior vena cava is normal in size. PELVIS: Pelvic Organs: Unremarkable. Bladder: Unremarkable. Pelvic Nodes: No enlarged lymph nodes. Miscellaneous: No inguinal hernias are seen. Bones: No aggressive appearing bony lesions. No acute vertebral body compression fracture. IMPRESSION: 1. No aortic aneurysm or dissection. 2. Prominent size of main pulmonary artery which can be seen associated with pulmonary vascular hypertension. 3. Dependent atelectasis in posterior aspect of bilateral lung dueñas. Bilateral lungs are otherwise clear. 4. No acute inflammatory process is seen in abdomen or pelvis. No free fluid or free air. Normal appendix. Dictated by: Cory Phelps M.D. on 12/31/2023 at 0:03 Approved by: Cory Phelps M.D. on 12/31/2023 at 0:08
[2023-12-30] MEDS: SODIUM CHLORIDE 0.9% 1,000 ML 1000 ML IV (23:24)
[2023-12-31] VITALS (50 sets, daily range): BP systolic 104–142; BP diastolic 55–99; PULSE 81–97; RESP 18–60; O2SAT 81–100
[2023-12-31] MEDS: METOPROLOL TARTRATE 5 MG/5 ML INJ IV (00:31)
[2023-12-31 00:33] LABS: Appearance Urine UA CLEAR; Bilirubin Urine UA NEGATIVE (NEGATIVE); Glucose Urine UA NEGATIVE (Negative); Ketones Urine UA NEGATIVE (NEGATIVE); Leukocyte Esterase Urine UA NEGATIVE (NEGATIVE); Nitrite Urine UA NEGATIVE (Negative); Occult Blood Urine UA NEGATIVE (Negative); Protein Urine UA NEGATIVE (Negative); Specific Gravity Urine UA <=1.005 (1.000-1.035); Urobilinogen Urine UA 0.2 E.U./dL (0.2)
[2023-12-31 00:40] LABS: Color Urine UA Straw
[2023-12-31 00:41] LABS: Bacteria Urine None Seen; Culture Indicated Urine Cult Not Indicated; RBC Urine None Seen (0-5/HPF); Squamous Epithelial Cell Urine None Seen (0-5/HPF); Urine Volume 10mL (spun); WBC Urine None Seen (0-5/HPF)
[2023-12-31] MEDS: HEPARIN DRIP 25,000 UNIT/500 ML IV.SOLN 19.051 UNIT IV (00:46)
[2023-12-31] MEDS: NITROGLYCERIN 50 MG/250 ML INFUS..BTL IV (00:50)
[2023-12-31] MEDS: HEPARIN 5,000 UNIT/ML VIAL 5000 UNIT IV (00:53)
[2023-12-31 01:03] LABS: Troponin I 0.074 ng/mL (0.01-0.034)
[2023-12-31] MEDS: MORPHINE 4 MG/ML INJ IV (02:01)
[2023-12-31] MEDS: LORazepam 2 MG/ML INJ 0.5 MG IV (04:44)
[2023-12-31 06:35] LABS: Hematocrit 45.2 % (41-53); Hemoglobin 15.6 g/dL (13.5-17.5)
[2023-12-31 06:48] LABS: PTT Partial Thromboplastin Tim 63 SECONDS (25.1-36.5)
[2023-12-31 07:05] LABS: Troponin I 0.052 ng/mL (0.01-0.034)
== END 2023-12-31 08:00 | disposition short-term general hospital (02) ==
PROVIDERS: Emergency Provider Emergency Medicine
DX: I20.0 Unstable angina (principal); R07.9 Chest pain, unspecified; Z87.74 Personal history of (corrected) congenital malformations of heart and circulatory system
CPT/HCPCS: 36415; 71045; 71275; 74174; 80053; 81001; 82550; 83690; 83735; 83880; 84484; 85014; 85018; 85025; 85610; 85730; 93005; 96361; 96365; 96366; 96368; 96375; 96376; 99284; 99291; J1644; J2060; J2270; Q9967

== ENCOUNTER 2025-03-26 19:33 | Observation (INO) | payer OTHER, SELFPAY ==
[2025-03-26] VITALS (14 sets, daily range): BP systolic 112–123; BP diastolic 69–88; PULSE 79–90; RESP 18–46; TEMP 36.4; O2SAT 94–100; BMI 24.3
--- NOTE | 2025-03-26 19:54 | DI.RAD.S_ITS ---
PROCEDURE: XR CHEST 1V INDICATIONS: Shortness of breath TECHNIQUE: One view of the chest was acquired. COMPARISON: [facility], CR, XR CHEST 1V, 12/30/2023, 22:33. FINDINGS: Surgical changes and devices: None. Lungs and pleura: Lungs are clear. No pleural effusions or pneumothorax. Mediastinum: Stable mild cardiomegaly post median sternotomy Bones and chest wall: No suspicious bony lesions. Overlying soft tissues appear unremarkable. IMPRESSION: No acute cardiopulmonary abnormality is seen. Dictated by: Noé Gilelspie M.D. on 03/26/2025 at 20:56 Approved by: Noé Gillespie M.D. on 03/26/2025 at 20:57
--- NOTE | 2025-03-26 20:16 | EKG_ITS ---
[address] [address] Test Date: 2025-03-26 Pat Name: Antonio Arnold Department: Room: Gender: Male Systems Manager: MARKIE : 1980 Requested By: Order Number: [id number] Reading MD: Aime Alvarez MD Measurements Intervals [place] Rate: 83 P: 5 LA: 178 QRS: -39 QRSD: 92 T: 108 QT: 420 QTc: 493 Interpretive Statements Normal sinus rhythm Left axis deviation T wave abnormality, consider lateral ischemia Prolonged QT Electronically Signed On 03-27-2025 5:58:16 PDT by Aime Alvarez MD
[2025-03-26 20:37] LABS: Add Manual Diff / Slide Review NO; Hematocrit 45.5 % (41-53); Hemoglobin 15.3 g/dL (13.5-17.5); Lymphocytes Absolute Auto 2400 /uL (1100-4500); Mean Corpuscular HGB Conc 33.6 % (30-36); Mean Corpuscular Hemoglobin 29.8 PG (26-34); Mean Corpuscular Volume 88.9 fL (80-100); Platelet Count 166 X10^3/uL (150-400)
[2025-03-26 20:42] LABS: INR 1.1 (0.9-1.3); Prothrombin Time 12.9 SECONDS (9.4-12.5)
[2025-03-26 20:45] LABS: Lactate (Lactic Acid) 1.4 mmol/L (0.7-2.1)
[2025-03-26 20:46] LABS: Alanine Aminotransferase 70 IU/L (<50); Albumin 3.9 g/dL (3.5-5.0); Albumin Globulin Ratio 1.3 (1.0-2.8); Alkaline Phosphatase 88 U/L (38-126); Blood Urea Nitrogen 22 mg/dL (9-20); Calcium 8.9 mg/dL (8.4-10.2); Carbon Dioxide 25 mmol/L (22-32); Chloride 109 mmol/L (98-107); Estimated Glomerular Filt Rate > 60 mL/min (>60); Globulin 3.1 g/dL (1.7-4.1); Glucose 99 mg/dL (70-99); HEMOLYSIS < 15 (0-50); Potassium 4.5 mmol/L (3.4-5.1); Sodium 139 mmol/L (137-145); Total Protein 7.0 g/dL (6.3-8.2)
[2025-03-26] MEDS: ONDANSETRON 4 MG/2 ML INJ IV (20:51)
[2025-03-26 20:57] LABS: NT-proBNP (BNP-Adult 18+) 16400 pg/mL (<125)
[2025-03-26 21:08] LABS: Troponin I 0.257 ng/mL (0.01-0.034)
--- NOTE | 2025-03-26 22:00 | ED_ITS ---
HPI - SOB/Dyspnea General Chief Complaint: Shortness of Breath/Dyspnea Stated Complaint: SOB, Abdominal Pain, Vomiting, Nausea Time Seen by Provider: 03/26/25 21:58 Source: patient Mode of arrival: Ambulatory History of Present Illness HPI Narrative: 44-year-old male with history of heart surgery age 15 (?VSD repair) in [place], history of congestive heart failure, noncompliant with medications in follow up, states that 1 year ago he was transferred from here over to [facility] for congestive heart failure, can not recall what was done there, unclear if he had any cardiac catheterization, he is not aware of any coronary vascular stenting, no open coronary artery procedures, states that he was on 6 different medications from that hospitalization, did not follow up with their provider or establish with any local PCP, cap refilling the medications, until local [facility] in [place] near to where he lives had closed, has run out of his torsemide medication, has 2 more pills of metoprolol left. He can not remember the names of the other 4 medications that he was prescribed. He feels more short of breath over the last 3-4 days. Denies chest pain. Denies swelling in the legs. Denies history of clots to legs or lungs, does not recall beyond blood thinner medications. Social history: Lives in [facility], does not seem to have any established primary care provider or any known youth liaison officer. History of alcohol use, last drink 1 year ago. 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 Denies use of fentanyl or heroin. Related Data Home Medications ?Medication ?Instructions ?Recorded ?Confirmed Unobtainable 03/27/25 03/27/25 Allergies Allergy/AdvReac Type Severity Reaction Status Date / Time No Known Drug Allergies Allergy Verified 03/26/25 21:51 Patient History Social History household members: significant other Smoking Status: Current every day smoker alcohol intake: former tobacco type: cigarettes Exam Narrative Exam Narrative: GENERAL: Well-developed patient, in mild distress. HEAD: Atraumatic. Normocephalic. EYES: Pupils equal round and reactive. Extraocular motions intact. No scleral icterus. No injection or drainage. ENT: Nose without bleeding, purulent drainage. Throat without erythema, tonsillar hypertrophy or exudate. Airway patent. NECK: Trachea midline. Non tender CARDIOVASCULAR: Regular rate and rhythm without murmurs, gallops, or rubs. RESPIRATORY: Clear to auscultation. Breath sounds equal bilaterally. No wheezes, rales, or rhonchi. Well-healed midline scar. No retractions. Initial increased respiratory rate. GASTROINTESTINAL: Abdomen soft, non-tender, nondistended. EXTREMITIES: No edema or joint tenderness. BACK: Nontender without deformity or crepitance. No flank tenderness. NEURO: AOx3. Motor functions grossly nonfocal. SKIN: No rash or erythema of visible areas Initial Vital Signs Initial Vital Signs: Vital Signs Temperature 97.5 F L 03/26/25 19:48 Pulse Rate 85 03/26/25 19:48 Respiratory Rate 18 03/26/25 19:48 Blood Pressure 112/84 03/26/25 19:48 Pulse Oximetry 100 03/26/25 19:48 Oxygen Delivery Method Room Air 03/26/25 19:48 Course Orders Ordered: ED Orders 03/26/25 22:09 CT angio chest PE protocol Stat 03/26/25 22:10 CT abdomen pelvis w con Stat 03/26/25 23:06 Trop I [Troponin I] Stat Acetaminophen (Acetaminophen 325 Mg Tablet) 650 mg PO Q6H PRN PRN Reason: Fever/Mild Pain (1-3) Calcium Carbonate (Calcium Carbonate 500 Mg Tab) 1,000 mg PO Q4HR PRN PRN Reason: Dyspepsia Enoxaparin Sodium (Enoxaparin 40 Mg/0.4 Ml Syringe) 40 mg SUBCUT DAILY [facility] Furosemide (Furosemide 40 Mg/4 Ml Vial) 40 mg IV Q8H [facility] Metoprolol Tartrate (Metoprolol Ir 25 Mg Tablet) 25 mg PO BID [facility] Morphine Sulfate (Morphine 4 Mg/Ml Inj) 2 mg IV Q2HR PRN PRN Reason: Pain, Severe (7-10) Last Admin: 03/27/25 02:42 Dose: 2 mg Documented By: AT Naloxone HCl (Naloxone 0.4 Mg/Ml Vial) 0.2 mg IV Q2MIN PRN PRN Reason: Opiate Reversal Ondansetron HCl (Ondansetron 4 Mg/2 Ml Inj) 4 mg IV Q8HR PRN PRN Reason: Nausea And Vomiting Sennosides (Sennosides 8.6 Mg Tablet) 17.2 mg PO BEDTIME FEROZ Spironolactone (Spironolactone 25 Mg Tablet) 25 mg PO DAILY FEROZ Discontinued Medications Aspirin (Aspirin 81 Mg Chew Tab) 324 mg PO NOW ONE Stop: 03/26/25 22:03 Last Admin: 03/26/25 22:08 Dose: 324 mg Documented By: SARAH Furosemide (Furosemide 40 Mg/4 Ml Vial) 40 mg IV NOW ONE Stop: 03/26/25 23:25 Last Admin: 03/26/25 23:44 Dose: 40 mg Documented By: AB Morphine Sulfate (Morphine 4 Mg/Ml Inj) 4 mg IV NOW ONE Stop: 03/26/25 22:00 Morphine Sulfate (Morphine 2 Mg/Ml Inj) 2 mg IV Q15M PRN PRN Reason: Chest Pain Last Admin: 03/26/25 23:00 Dose: 2 mg Documented By: Admin: 03/26/25 22:04 Dose: 2 mg Documented By: SARAH Nitroglycerin (Nitroglycerin Oint 1 Inch/Gm Oint...G.) 0.5 inch TOP NOW ONE Stop: 03/26/25 22:02 Last Admin: 03/26/25 22:06 Dose: 0.5 inch Documented By: SARAH Ondansetron HCl (Ondansetron 4 Mg/2 Ml Inj) 4 mg IV NOW ONE Stop: 03/26/25 20:26 Last Admin: 03/26/25 20:51 Dose: 4 mg Documented By: DALIA Vital Signs Vital signs: Vital Signs - 8 hr 03/26/25 22:30 03/26/25 22:45 03/26/25 23:00 Pulse Rate 90 79 Respiratory Rate 46 H 23 Blood Pressure 114/69 Pulse Oximetry 98 99 Oxygen Delivery Method 03/26/25 23:00 03/26/25 23:30 03/26/25 23:30 Pulse Rate 80 87 Respiratory Rate 31 H 19 Blood Pressure 114/76 Pulse Oximetry 97 94 Oxygen Delivery Method Room Air Room Air 03/27/25 00:00 03/27/25 00:00 03/27/25 00:30 Pulse Rate 87 88 Respiratory Rate 31 H Blood Pressure 119/90 Pulse Oximetry 100 99 Oxygen Delivery Method Room Air 03/27/25 00:30 03/27/25 01:00 03/27/25 01:01 Pulse Rate 75 Respiratory Rate 22 Blood Pressure 123/84 130/71 Pulse Oximetry 99 Oxygen Delivery Method 03/27/25 01:01 03/27/25 01:30 03/27/25 01:30 Pulse Rate 76 76 Respiratory Rate 25 H 32 H Blood Pressure 119/72 Pulse Oximetry 99 97 Oxygen Delivery Method Room Air MDM - SOB/Dyspnea Lab Data Attestation: I reviewed the patient's lab results. Lab results narrative: White blood cell count 8200, hemoglobin 15.3, platelets adequate. Glucose 99. BUN 22 with creatinine 1.19, serum CO2 25 normal, serum sodium and potassium normal. T bili 1.8 mild elevation, AST 63 mild elevation, ALT 70 mild elevation, alkaline phosphatase 88 normal. Troponin 0.257 elevated, interval repeat 0.204 still elevated but decreased from prior draw. BNP 42999 markedly elevated. 03/26/25 20:25 03/26/25 20:25 Labs: Lab Results 03/26/25 03/26/25 Range/Units 20:25 23:06 WBC 8.2 (4.5-11.0) X10^3/uL RBC 5.12 (4.5-5.9) X10^6/uL Hgb 15.3 (13.5-17.5) g/dL Hct 45.5 (41-53) % MCV 88.9 (80-100) fL MCH 29.8 (26-34) PG MCHC 33.6 (30-36) % RDW 15.3 H (11.6-14.8) % Plt Count 166 (150-400) X10^3/uL Neut % (Auto) 60.0 (50-75) % Lymph % (Auto) 29.6 (25-40) % Parmer % (Auto) 8.5 (3-14) % Eos % (Auto) 1.1 L (2-4) % Baso % (Auto) 0.8 (0-2) % Neut # (Auto) 4900 (5632-7465) /uL Lymph # (Auto) 2400 (8565-9633) /uL Parmer # (Auto) 700 (0-900) /uL Eos # (Auto) 100 (0-450) /uL Baso # (Auto) 100 (0-100) /uL PT 12.9 H (9.4-12.5) SECONDS INR 1.1 (0.9-1.3) D-Dimer 2724 H (<500) ng/ml Sodium 139 (137-145) mmol/L Potassium 4.5 (3.4-5.1) mmol/L Chloride 109 H (98-107) mmol/L Carbon Dioxide 25 (22-32) mmol/L BUN 22 H (9-20) mg/dL Creatinine 1.19 (0.66-1.25) mg/dL Estimated GFR > 60 (>60) mL/min BUN/Creatinine Ratio 18.5 (6-22) Glucose 99 (70-99) mg/dL Lactate 1.4 (0.7-2.1) mmol/L Calcium 8.9 (8.4-10.2) mg/dL Total Bilirubin 1.8 H (0.2-1.3) mg/dL AST 63 H (17-59) IU/L ALT 70 H (<50) IU/L Alkaline Phosphatase 88 (38-126) U/L Troponin I 0.257 H* 0.204 H* (0.01-0.034) ng/mL NT-Pro-B Natriuret Pep 88118 H (<125) pg/mL Total Protein 7.0 (6.3-8.2) g/dL Albumin 3.9 (3.5-5.0) g/dL Globulin 3.1 (1.7-4.1) g/dL Albumin/Globulin Ratio 1.3 (1.0-2.8) Imaging Data Chest x-ray: Radiologist's Impression: [address] [address] XRay Report Signed Patient: Antonio Arnold MR#: [id number] : 1980 Acct:[id number] Age/Sex: 44 / M Date of Service: 03/26/25 Loc: ED Accession Number: [id number] Procedure: XR chest 1V Ordering Provider: Ángel Duckworth MD PROCEDURE: XR CHEST 1V INDICATIONS: Shortness of breath TECHNIQUE: One view of the chest was acquired. COMPARISON: [facility], , XR CHEST 1V, 12/30/2023, 22:33. FINDINGS: Surgical changes and devices: None. Lungs and pleura: Lungs are clear. No pleural effusions or pneumothorax. Mediastinum: Stable mild cardiomegaly post median sternotomy Bones and chest wall: No suspicious bony lesions. Overlying soft tissues appear unremarkable. IMPRESSION: No acute cardiopulmonary abnormality is seen. Dictated by: Noé Gillespie M.D. on 03/26/2025 at 20:56 Approved by: Noé Gillespie M.D. on 03/26/2025 at 20:57 CT angiogram chest: Radiologist's Impression: [address] [address] [address] Scan Report Signed Patient: Antonio Arnold MR#: [id number] : 1980 Acct:[id number] Age/Sex: 44 / M Date of Service: 03/26/25 Loc: ED Accession Number: [id number] Procedure: CT angio chest PE protocol Ordering Provider: Ángel Duckworth MD PROCEDURE: CT ANGIO CHEST PE PROTOCOL INDICATIONS: dyspnea, inc BNP/trop, neg EKG TECHNIQUE: After the administration of intravenous contrast, 2 mm thick sections acquired from the pulmonary apices to the posterior costophrenic angles. 3-dimensional maximum intensity projection (MIP) coronal and sagittal reformats were then acquired through the thorax. For radiation dose reduction, the following was used: automated exposure control, adjustment of mA and/or kV according to patient size. COMPARISON: None. FINDINGS: Image quality: Diagnostic. Pulmonary arteries: Main pulmonary artery is dilated measuring up to 3.7 cm in caliber., no intraluminal filling defects to suggest central pulmonary embolism. Lower Neck: No enlarged lymph nodes. Thyroid: No thyroid nodules which require sonographic follow up, per consensus guidelines. Axillae: No enlarged lymph nodes. Chest Wall: Status post median sternotomy.. Bones: Unremarkable. Lungs and Pleura: No pneumothorax or pleural effusions. No consolidation or suspicious nodules. Heart: Heart size is enlarged. No pericardial effusion. Thoracic Vessels: No aortic aneurysm. Mediastinum and [place]: No enlarged lymph nodes. Esophagus: No wall thickening. No hiatal hernia. Upper Abdomen: Visualized upper abdomen solid organs and bowel loops appear normal. IMPRESSION: No pulmonary embolus. Dilated main pulmonary artery measuring up to 3.7 in caliber which may represent pulmonary hypertension. Cardiomegaly. Approved by: Viri Barcenas M.D.,Ph.D. on 03/26/2025 at 23:36 CT scan - abdomen/pelvis: Radiologist's Impression: [address] [address] [address] Scan Report Signed Patient: Antonio rAnold MR#: [id number] : 1980 Acct:[id number] Age/Sex: 44 / M Date of Service: 03/26/25 Loc: ED Accession Number: [id number] Procedure: CT abdomen pelvis w con Ordering Provider: Ángel Duckworth MD PROCEDURE: CT ABDOMEN PELVIS W CON INDICATIONS: abd pain TECHNIQUE: After the administration of intravenous contrast, axial sections acquired from the lung bases to the pubic symphysis. Coronal and sagittal reformats were performed. For radiation dose reduction, the following was used: automated exposure control, adjustment of mA and/or kV according to patient size. COMPARISON: Same-day CT chest PE 03/26/2025. FINDINGS: Image quality: Diagnostic. Lower Chest: Please see separately dictated CT chest PE obtained concurrently ABDOMEN: Liver: No solid mass. Gallbladder: No radiopaque gallstones or wall thickening. Biliary ducts: No biliary dilation. Pancreas: No ductal dilation. Spleen: Size is within normal limits. Adrenal Glands: No adrenal nodules. Kidneys and Ureters: No hydronephrosis. No solid mass. No complex renal cystic lesion which requires follow up. Stomach and Bowel: Normal colonic caliber, without significant wall thickening. Normal caliber appendix. Peritoneum: Small volume ascites.. No free air. Ventral Wall: No significant ventral hernia. Abdominal Nodes: No retroperitoneal or mesenteric adenopathy by size criteria. Vessels: Aorta and inferior vena cava are normal in size. PELVIS: Pelvic Organs: Unremarkable. Bladder: No bladder wall thickening, accounting for underdistention. Pelvic Nodes: No enlarged lymph nodes. Miscellaneous: No inguinal hernias are seen. Bones: No aggressive osseous abnormality. IMPRESSION: Small volume ascites. No other acute abdominopelvic process identified. Please see separately dictated CT chest PE for additional findings. Approved by: Viri Barcenas M.D.,Ph.D. on 03/26/2025 at 23:39 ECG Data Attestation: I personally reviewed and interpreted this ECG as follows: Interpretation: Normal sinus rhythm with rate of 83, no obvious ST segment elevation or depression changes. RI 178, QRS 92, QTC 493. MDM Narrative Medical decision making narrative: 45-year-old male with chest pain and shortness of breath. History of congestive heart failure, history of prior cardiac surgery non valvular (?VSD) at age 15. Noncompliant with medications. History of alcohol and methamphetamine use in the past. Congestive heart failure admission/transfer to [facility] about 1 year ago, since that time he has been refilling his medications through [facility] in [place], when the [facility] closed he ran out of further refills, had not seen any providers since his admission, previously on 6 medications, four of which he cannot name, ran out of torsemide a few days ago, has 2 tablets of metoprolol left, can not recall the name of the other 4 medications that he had been taking but he had run out of 1-2 weeks ago. Records request from [facility] from last year transfer admission. EKG shows normal sinus rhythm without obvious ischemic changes. Chest x-ray shows no acute changes, no mentioned of any fluid overload changes, no infiltrates or pneumothorax. See radiology report. Lab data: White blood cell count 8200, hemoglobin 15.3, platelets adequate. Glucose 99. BUN 22 with creatinine 1.19, serum CO2 25 normal, serum sodium and potassium normal. T bili 1.8 mild elevation, AST 63 mild elevation, ALT 70 mild elevation, alkaline phosphatase 88 normal. Troponin 0.257 elevated, interval repeat 0.204 still elevated but decreased from prior draw. BNP [address] angiogram chest PE protocol. IMPRESSION: No pulmonary embolus. Dilated main pulmonary artery measuring up to 3.7 in caliber which may represent pulmonary hypertension.Cardiomegaly. See radiology report. CT abdomen and pelvis. IMPRESSION: Small volume ascites. No other acute abdominopelvic process identified. Please see separately dictated CT chest PE for additional findings. See radiology report. Topical nitroglycerin, IV morphine, IV Lasix. Diuresis induced, he feels less short of breath. Patient does not want to be transferred, expressed interested in leaving against medical advice, willing to here wet local cardiology on-call has to say. We will consult Cardiology Dr Jon. 0130, case discussed with cardiology Dr. Jon, likely troponin elevation represents type 2 injury, no heparin for now, can admit here for further IV Lasix diuresis and coordination of echocardiogram. He can consult if patient willing to be admitted here. Patient seems to be willing to have admission here, does does not want to be transferred, we would otherwise likely leave against medical advice. We will contact hospitalist regarding admission here. Discharge Plan Departure Patient Disposition: Admitted as Observation Clinical Impression: Dyspnea, Congestive heart failure, Elevated troponin Admit Date/Time: 03/27/25 01:50 Admit Provider: Ciro Azar
[2025-03-26] MEDS: MORPHINE 2 MG/ML INJ IV ×2 (22:04→23:00)
[2025-03-26] MEDS: NITROGLYCERIN OINT 1 INCH/GM OINT...G. 0.5 INCH TOP (22:06)
[2025-03-26] MEDS: ASPIRIN 81 MG CHEW TAB 324 MG PO (22:08)
--- NOTE | 2025-03-26 22:09 | DI.CT.S_ITS ---
PROCEDURE: CT ANGIO CHEST PE PROTOCOL INDICATIONS: dyspnea, inc BNP/trop, neg EKG TECHNIQUE: After the administration of intravenous contrast, 2 mm thick sections acquired from the pulmonary apices to the posterior costophrenic angles. 3-dimensional maximum intensity projection (MIP) coronal and sagittal reformats were then acquired through the thorax. For radiation dose reduction, the following was used: automated exposure control, adjustment of mA and/or kV according to patient size. COMPARISON: None. FINDINGS: Image quality: Diagnostic. Pulmonary arteries: Main pulmonary artery is dilated measuring up to 3.7 cm in caliber., no intraluminal filling defects to suggest central pulmonary embolism. Lower Neck: No enlarged lymph nodes. Thyroid: No thyroid nodules which require sonographic follow up, per consensus guidelines. Axillae: No enlarged lymph nodes. Chest Wall: Status post median sternotomy.. Bones: Unremarkable. Lungs and Pleura: No pneumothorax or pleural effusions. No consolidation or suspicious nodules. Heart: Heart size is enlarged. No pericardial effusion. Thoracic Vessels: No aortic aneurysm. Mediastinum and [place]: No enlarged lymph nodes. Esophagus: No wall thickening. No hiatal hernia. Upper Abdomen: Visualized upper abdomen solid organs and bowel loops appear normal. IMPRESSION: No pulmonary embolus. Dilated main pulmonary artery measuring up to 3.7 in caliber which may represent pulmonary hypertension. Cardiomegaly. Approved by: Viri Barcenas M.D.,Ph.D. on 03/26/2025 at 23:36
--- NOTE | 2025-03-26 22:10 | DI.CT.S_ITS ---
PROCEDURE: CT ABDOMEN PELVIS W CON INDICATIONS: abd pain TECHNIQUE: After the administration of intravenous contrast, axial sections acquired from the lung bases to the pubic symphysis. Coronal and sagittal reformats were performed. For radiation dose reduction, the following was used: automated exposure control, adjustment of mA and/or kV according to patient size. COMPARISON: Same-day CT chest PE 03/26/2025. FINDINGS: Image quality: Diagnostic. Lower Chest: Please see separately dictated CT chest PE obtained concurrently ABDOMEN: Liver: No solid mass. Gallbladder: No radiopaque gallstones or wall thickening. Biliary ducts: No biliary dilation. Pancreas: No ductal dilation. Spleen: Size is within normal limits. Adrenal Glands: No adrenal nodules. Kidneys and Ureters: No hydronephrosis. No solid mass. No complex renal cystic lesion which requires follow up. Stomach and Bowel: Normal colonic caliber, without significant wall thickening. Normal caliber appendix. Peritoneum: Small volume ascites.. No free air. Ventral Wall: No significant ventral hernia. Abdominal Nodes: No retroperitoneal or mesenteric adenopathy by size criteria. Vessels: Aorta and inferior vena cava are normal in size. PELVIS: Pelvic Organs: Unremarkable. Bladder: No bladder wall thickening, accounting for underdistention. Pelvic Nodes: No enlarged lymph nodes. Miscellaneous: No inguinal hernias are seen. Bones: No aggressive osseous abnormality. IMPRESSION: Small volume ascites. No other acute abdominopelvic process identified. Please see separately dictated CT chest PE for additional findings. Approved by: Viri Barcenas M.D.,Ph.D. on 03/26/2025 at 23:39
[2025-03-26 23:38] LABS: Troponin I 0.204 ng/mL (0.01-0.034)
[2025-03-26] MEDS: FUROSEMIDE 40 MG/4 ML VIAL IV (23:44)
[2025-03-27] VITALS (10 sets, daily range): BP systolic 110–130; BP diastolic 71–90; PULSE 75–88; RESP 14–39; TEMP 36.6–37; O2SAT 95–100; BMI 24.3
[2025-03-27] MEDS: MORPHINE 4 MG/ML INJ 2 MG IV (02:42)
--- NOTE | 2025-03-27 03:03 | PM.HP.1 ---
History of Present Illness History of Present Illness Date Patient Seen: 03/27/25 Time Patient Seen: 03:04 Chief complaint: SOB, Abdominal Pain, Vomiting, Nausea Narrative: The pt is a 44 yo with a hx of some type of heart surgery at age 15 (possibly VSD) who was hospitalizated at [place] on year ago and saw cardiology there but has not followed up with any provider since and ran out of his medications about one month ago. He now has a pressure like sensation in the right side of his chest for the past 3 days. There has been no cough, fever, productive sputum, change in weight, chest pain. FOR[facility]LY [facility] Social History household members: significant other Smoking Status: Current every day smoker alcohol intake: former Meds Home Medications and Allergies Home Medications ?Medication ?Instructions ?Recorded ?Confirmed ?Type Unobtainable 03/27/25 03/27/25 History Allergies Allergy/AdvReac Type Severity Reaction Status Date / Time No Known Drug Allergies Allergy Verified 03/26/25 21:51 Exam Vital Signs (past 8 hours): - 03/26/25 19:48 03/26/25 20:38 03/26/25 20:45 Temperature 97.5 F L Pulse Rate 85 84 Respiratory Rate 18 25 H Blood Pressure 112/84 113/83 116/85 Pulse Oximetry 100 100 Oxygen Delivery Method Room Air Room Air Oxygen Flow Rate 03/26/25 20:45 03/26/25 21:00 03/26/25 21:00 Temperature Pulse Rate 85 79 Respiratory Rate 33 H 29 H Blood Pressure 115/77 Pulse Oximetry 99 99 Oxygen Delivery Method Oxygen Flow Rate 03/26/25 21:15 03/26/25 21:15 03/26/25 21:30 Temperature Pulse Rate 79 Respiratory Rate 33 H Blood Pressure 115/81 121/84 Pulse Oximetry 98 Oxygen Delivery Method Oxygen Flow Rate 03/26/25 21:30 03/26/25 21:45 03/26/25 21:45 Temperature Pulse Rate 85 82 Respiratory Rate 23 24 Blood Pressure 123/85 Pulse Oximetry 99 98 Oxygen Delivery Method Room Air Oxygen Flow Rate 03/26/25 22:00 03/26/25 22:06 03/26/25 22:15 Temperature Pulse Rate 84 80 82 Respiratory Rate 18 18 Blood Pressure 115/84 115/84 118/88 Pulse Oximetry 99 99 Oxygen Delivery Method Room Air Oxygen Flow Rate 03/26/25 22:30 03/26/25 22:45 03/26/25 23:00 Temperature Pulse Rate 90 79 Respiratory Rate 46 H 23 Blood Pressure 114/69 Pulse Oximetry 98 99 Oxygen Delivery Method Oxygen Flow Rate 03/26/25 23:00 03/26/25 23:30 03/26/25 23:30 Temperature Pulse Rate 80 87 Respiratory Rate 31 H 19 Blood Pressure 114/76 Pulse Oximetry 97 94 Oxygen Delivery Method Room Air Room Air Oxygen Flow Rate 03/27/25 00:00 03/27/25 00:00 03/27/25 00:30 Temperature Pulse Rate 87 88 Respiratory Rate 31 H Blood Pressure 119/90 Pulse Oximetry 100 99 Oxygen Delivery Method Room Air Oxygen Flow Rate 03/27/25 00:30 03/27/25 01:00 03/27/25 01:01 Temperature Pulse Rate 75 Respiratory Rate 22 Blood Pressure 123/84 130/71 Pulse Oximetry 99 Oxygen Delivery Method Oxygen Flow Rate 03/27/25 01:01 03/27/25 01:30 03/27/25 01:30 Temperature Pulse Rate 76 76 Respiratory Rate 25 H 32 H Blood Pressure 119/72 Pulse Oximetry 99 97 Oxygen Delivery Method Room Air Oxygen Flow Rate 03/27/25 02:00 03/27/25 02:01 03/27/25 02:01 Temperature Pulse Rate 77 84 Respiratory Rate 30 H 39 H Blood Pressure 117/73 Pulse Oximetry 98 99 Oxygen Delivery Method Oxygen Flow Rate 03/27/25 02:17 Temperature 98.6 F Pulse Rate 83 Respiratory Rate 14 Blood Pressure 124/72 Pulse Oximetry 100 Oxygen Delivery Method Oxygen Flow Rate 0 Oxygen Delivery Method Room Air Oxygen Flow Rate 0 Const General: cooperative, healthy appearing and comfortable Resp Auscultation: clear to auscultation bilaterally Cardio Rate: regular rate Rhythm: regular rhythm Heart Sounds: murmur Extrem General: no clubbing, cyanosis or edema Objective Labs 03/26/25 20:25 03/26/25 20:25 Labs: Laboratory Results - last 24 hr 03/26/25 03/26/25 20:25 23:06 WBC 8.2 RBC 5.12 Hgb 15.3 Hct 45.5 MCV 88.9 MCH 29.8 MCHC 33.6 RDW 15.3 H Plt Count 166 Neut % (Auto) 60.0 Lymph % (Auto) 29.6 [place] % (Auto) 8.5 Eos % (Auto) 1.1 L Baso % (Auto) 0.8 Neut # (Auto) 4900 Lymph # (Auto) 2400 [place] # (Auto) 700 Eos # (Auto) 100 Baso # (Auto) 100 PT 12.9 H INR 1.1 D-Dimer 2724 H Sodium 139 Potassium 4.5 Chloride 109 H Carbon Dioxide 25 BUN 22 H Creatinine 1.19 Estimated GFR > 60 BUN/Creatinine Ratio 18.5 Glucose 99 Lactate 1.4 Calcium 8.9 Total Bilirubin 1.8 H AST 63 H ALT 70 H Alkaline Phosphatase 88 Troponin I 0.257 H* 0.204 H* NT-Pro-B Natriuret Pep 99366 H Total Protein 7.0 Albumin 3.9 Globulin 3.1 Albumin/Globulin Ratio 1.3 Assessment & Plan Assessment & Plan narrative: I discussed with the ER provider the pt's presenting symptoms, labs and imaging and agree with the decision for admission. I have reviewed the personally thelabs showing the BNP of 16k, normal CBC with Cr of 1.2, CT scan reviewed also by myself shiowing only a small amount of ascities. 1. CHF exacerbation 2. Congenital heart disease s/p surgical repair- will start the pt on lasix 40 mg IV Q8, spironolactone, metoprolol. He does not remember his meds so we are guessing at what he might have been on. He appears non-compliant with medical recommendations. We will consult Dr. Jon in am, on telemetry, repeating troponins in nam morning. possible type II IN due to myocardial stress with the fluid overload. echo pending. I, Dr. Ciro Azar in [place] has seen and evaluated Antonio Arnold in [place] using all telemedicine audio & video available with the pt's consent and assistance of nursing. Time-Based Coding :: [TOTAL MINUTES] spent with patient and on the chart (including review of chart, obtaining history, exam, reviewing outside data, placing orders, documenting exam and treatment plan, and counseling patient) on [DATE].
--- NOTE | 2025-03-27 03:15 | DI.ECHO.S_ITS ---
[facility] : : [address] : : [place] : : [id number] : : Phone: [phone] Echocardiogram Report + + :Name: KYAW HUMPHREYS Study Date: 03/27/2025 Height: 67 in : :[facility] ReadingLocation: Weight: 149 lb: : Gender: Male BSA: 1.8 m2 : :: 1980 Age: 44 yrs : :Reason For Study: CONGENITAL HEART DISEASE : :Ordering Physician: EVETTE, : :ROD Vazquez MD Performed By: Denisse Muller : :Referring: ROD KHALIL MD : + + Interpretation Summary The left ventricle is moderate-severely dilated. There is a moderate size apical thrombus. Apical thrombus measuring 1.2cm x 0.8cm. Left ventricular systolic function is severely reduced. Left ventricular ejection fraction is estimated to be 15 +/- 5%. The right ventricle is moderately dilated. Right ventricular systolic function is mild to moderately reduced. There is moderate to severe tricuspid regurgitation. The right ventricular systolic pressure is estimated to be at least 47 mmHg based on an estimated right atrial pressure of 15 mm Hg. There is moderate mitral regurgitation. There is mild aortic regurgitation. Procedure: A two-dimensional transthoracic echocardiogram with color flow and Doppler was performed. The study quality was technically good. There is no prior echocardiogram noted for this patient. The patient was in sinus rhythm with heart rates between 53-73 bpm during the exam. Left Ventricle: The left ventricle is moderate-severely dilated. There is normal left ventricular wall thickness. There is a moderate size apical thrombus. Apical thrombus measuring 1.2cm x 0.8cm. Left ventricular systolic function is severely reduced. Left ventricular ejection fraction is estimated to be 15 +/- 5%. Grade III diastolic dysfunction with elevated left atrial pressure. Right Ventricle: The right ventricle is moderately dilated. Right ventricular systolic function is mild to moderately reduced. Atria: The left atrium is severely dilated. The right atrium is mildly dilated. There is no Doppler evidence for an interatrial shunt. Mitral Valve: The mitral valve leaflets appear moderately thickened. There is moderate mitral regurgitation. Aortic Valve: The aortic valve is trileaflet. The aortic valve opens well. There is no aortic valve stenosis. There is mild aortic regurgitation. Tricuspid Valve: The tricuspid valve leaflets are thin and pliable. The tricuspid annulus is dilated. There is moderate to severe tricuspid regurgitation. The right ventricular systolic pressure is estimated to be at least 47 mmHg based on an estimated right atrial pressure of 15 mm Hg. Pulmonic Valve: The pulmonic valve is not well seen, but is grossly normal. There is mild to moderate pulmonic regurgitation. Great Vessels: The aortic root is normal size. The dimensions of the ascending aorta are normal. The IVC is dilated (diameter is greater than 2.1 cm) and it collapses less than 50% with a sniff. This suggests a high right atrial pressure of 15 mm Hg. Pericardium/ Pleura There is no pericardial effusion. There is no pleural effusion. MMode/2D Measurements & Calculations LVIDd: 6.6 cm LVOT diam: 2.0 cm LVIDs: 6.0 cm Ao root diam: 3.3 cm FS: 8.9 % asc Aorta Diam: 3.2 cm EPSS: 2.1 cm IVSd: 0.89 cm LVPWd: 0.72 cm LV cohen. diameter/BSA (cm/m^2): 3.7 LV sys. diameter/BSA (cm/m^2): 3.4 LA A2 area: 26.3 cm2 RA long axis: 4.8 cm LA A4 area: 23.0 cm2 RA area: 18.5 cm2 LA length (vol): 6.0 cm RA vol: 60.5 ml LA vol: 86.1 ml RA : 33.9 ml/m2 LA vol index: 48.3 ml/m2 IVC diam: 2.2 cm RVD1 (basal): 5.4 cm TAPSE: 1.4 cm Doppler Measurements & Calculations Ao V2 max: 69.0 cm/sec LVOT Max Ashok: 53.1 cm/sec Ao V2 mean: 49.6 cm/sec LV V1 max P.1 mmHg Ao max P.9 mmHg LV V1 VTI: 9.5 cm Ao mean P.1 mmHg BITA(I,D): 2.7 cm2 Ao V2 VTI: 11.4 cm BITA(V,D): 2.5 cm2 sev ratio: 0.83 BITA indexed to BSA (cm^2/m^2): 1.5 MV E max ashok: 101.2 cm/sec TR max ashok: 283.4 cm/sec MV A max ashok: 20.3 cm/sec TR max P.1 mmHg MV E/A: 5.0 PA V2 max: 58.1 cm/sec Med Peak E' Ashok: 3.1 cm/sec PA V2 mean: 40.4 cm/sec E/E' med: 32.7 PA mean P.72 mmHg Lat Peak E' Ashok: 4.1 cm/sec PA pr(Accel): 44.3 mmHg E/E' lat: 24.9 E/e' average: 28.8 MV dec time: 0.15 sec MR ERO: 0.15 cm2 MR PISA: 1.7 cm2 SV(LVOT): 30.6 ml MR flow rate: 64.7 cm3/sec MR PISA radius: 0.52 cm Reading Physician:10:59 AM
[2025-03-27 03:34] LABS: Troponin I 0.167 ng/mL (0.01-0.034)
[2025-03-27 05:55] LABS: UR Morphine/Opiate cutoff 300 Positive (Negative); Urine MDMA Negative (Negative); Urine Methamphetamines Positive (Negative); Urine Tetrahydrocannabinol Positive (Negative); Urine Tricyclic Antidepressant Negative (Negative)
[2025-03-27 06:28] LABS: Hemoglobin A1C% w Est Avg Glu 6.2 % (4.0-6.0)
--- NOTE | 2025-03-27 07:26 | P.HP_ITS ---
History of Present Illness History of Present Illness Chief complaint: SOB, Abdominal Pain, Vomiting, Nausea Narrative: From night doctor: The pt is a 44 yo with a hx of some type of heart surgery at age 15 (possibly VSD) who was hospitalizated at [place] on year ago and saw cardiology there but has not followed up with any provider since and ran out of his medications about one month ago. He now has a pressure like sensation in the right side of his chest for the past 3 days. There has been no cough, fever, productive sputum, change in weight, chest pain. S: He feels much better after diuresis in his back to his baseline. He apparently was admitted for heart failure 1 time in the past but has not seen Cardiology. O: NAD, alert and oriented. Fluent speech. Lungs are clear, normal rate and effort. Heart is regular, no murmur gallop or rub. Abdomen is soft, non distended. Extremities are free of edema. ECG: Intervals [place] Rate: 83 P: 5 MS: 178 QRS: -39 QRSD: 92 T: 108 QT: 420 QTc: 493 Interpretive Statements Normal sinus rhythm Left axis deviation T wave abnormality, consider lateral ischemia Prolonged QT CTAP: Small volume ascites. No other acute abdominopelvic process identified. Please see separately dictated CT chest PE for additional findings. Chest CTA: No pulmonary embolus. Dilated main pulmonary artery measuring up to 3.7 in caliber which may represent pulmonary hypertension. Cardiomegaly. Large heart by my read. CXR: WNL by my read. A/P: 1. CHF exacerbation (type unknown, ECHO pending), active. 2. Congenital heart disease, active. PLAN: -ECHO (EF 15%) -diuresis [facility] Social History household members: significant other Smoking Status: Current every day smoker alcohol intake: former Meds Home Medications and Allergies Home Medications ?Medication ?Instructions ?Recorded ?Confirmed ?Type Unobtainable 03/27/25 03/27/25 History Allergies Allergy/AdvReac Type Severity Reaction Status Date / Time No Known Drug Allergies Allergy Verified 03/26/25 21:51 Review of Systems Review of Systems Narrative: All else reviewed and otherwise unremarkable except as noted in the history and physical. Exam Vital Signs (past 8 hours): - 03/26/25 23:30 03/26/25 23:30 03/27/25 00:00 Temperature Pulse Rate 87 87 Respiratory Rate 19 31 H Blood Pressure 114/76 Pulse Oximetry 94 100 Oxygen Delivery Method Room Air Room Air Oxygen Flow Rate 03/27/25 00:00 03/27/25 00:30 03/27/25 00:30 Temperature Pulse Rate 88 Respiratory Rate Blood Pressure 119/90 123/84 Pulse Oximetry 99 Oxygen Delivery Method Oxygen Flow Rate 03/27/25 01:00 03/27/25 01:01 03/27/25 01:01 Temperature Pulse Rate 75 76 Respiratory Rate 22 25 H Blood Pressure 130/71 Pulse Oximetry 99 99 Oxygen Delivery Method Oxygen Flow Rate 03/27/25 01:30 03/27/25 01:30 03/27/25 02:00 Temperature Pulse Rate 76 77 Respiratory Rate 32 H 30 H Blood Pressure 119/72 Pulse Oximetry 97 98 Oxygen Delivery Method Room Air Oxygen Flow Rate 03/27/25 02:01 03/27/25 02:01 03/27/25 02:17 Temperature 98.6 F Pulse Rate 84 83 Respiratory Rate 39 H 14 Blood Pressure 117/73 124/72 Pulse Oximetry 99 100 Oxygen Delivery Method Oxygen Flow Rate 0 03/27/25 02:20 03/27/25 03:07 03/27/25 06:16 Temperature Pulse Rate Respiratory Rate Blood Pressure Pulse Oximetry 100 Oxygen Delivery Method Room Air Room Air Room Air Oxygen Flow Rate 0 0 Oxygen Delivery Method Room Air Oxygen Flow Rate 0 Objective Labs 03/26/25 20:25 03/26/25 20:25 Labs: Laboratory Results - last 24 hr 03/26/25 03/26/25 03/27/25 20:25 23:06 02:30 WBC 8.2 RBC 5.12 Hgb 15.3 Hct 45.5 MCV 88.9 MCH 29.8 MCHC 33.6 RDW 15.3 H Plt Count 166 Neut % (Auto) 60.0 Lymph % (Auto) 29.6 [place] % (Auto) 8.5 Eos % (Auto) 1.1 L Baso % (Auto) 0.8 Neut # (Auto) 4900 Lymph # (Auto) 2400 [place] # (Auto) 700 Eos # (Auto) 100 Baso # (Auto) 100 PT 12.9 H INR 1.1 D-Dimer 2724 H Sodium 139 Potassium 4.5 Chloride 109 H Carbon Dioxide 25 BUN 22 H Creatinine 1.19 Estimated GFR > 60 BUN/Creatinine Ratio 18.5 Glucose 99 Hemoglobin A1c Lactate 1.4 Calcium 8.9 Total Bilirubin 1.8 H AST 63 H ALT 70 H Alkaline Phosphatase 88 Troponin I 0.257 H* 0.204 H* 0.167 H* NT-Pro-B Natriuret Pep 11506 H Total Protein 7.0 Albumin 3.9 Globulin 3.1 Albumin/Globulin Ratio 1.3 U Opiates 300ng/mL cut Ur Oxycodone Screen Urine Methadone Screen Ur Barbiturates Screen U Tricyclic Antidepress Ur Phencyclidine Scrn Ur Amphetamines Screen U Methamphetamines Scrn Ur MDMA Scrn (Ecstasy) U Benzodiazepines Scrn Urine Cocaine Screen U Marijuana (THC) Screen Urine pH Urine Specific [place] Ur Creatinine 03/27/25 03/27/25 05:38 06:00 WBC RBC Hgb Hct MCV MCH MCHC RDW Plt Count Neut % (Auto) Lymph % (Auto) [place] % (Auto) Eos % (Auto) Baso % (Auto) Neut # (Auto) Lymph # (Auto) [place] # (Auto) Eos # (Auto) Baso # (Auto) PT INR D-Dimer Sodium Potassium Chloride Carbon Dioxide BUN Creatinine Estimated GFR BUN/Creatinine Ratio Glucose Hemoglobin A1c 6.2 H Lactate Calcium Total Bilirubin AST ALT Alkaline Phosphatase Troponin I NT-Pro-B Natriuret Pep Total Protein Albumin Globulin Albumin/Globulin Ratio U Opiates 300ng/mL cut Positive H Ur Oxycodone Screen Negative Urine Methadone Screen Negative Ur Barbiturates Screen Negative U Tricyclic Antidepress Negative Ur Phencyclidine Scrn Negative Ur Amphetamines Screen Negative U Methamphetamines Scrn Positive H Ur MDMA Scrn (Ecstasy) Negative U Benzodiazepines Scrn Negative Urine Cocaine Screen Negative U Marijuana (THC) Screen Positive H Urine pH TNP Urine Specific [place] TNP Ur Creatinine TNP Assessment & Plan Time-Based Coding :: [TOTAL MINUTES] spent with patient and on the chart (including review of chart, obtaining history, exam, reviewing outside data, placing orders, documenting exam and treatment plan, and counseling patient) on [DATE].
--- NOTE | 2025-03-27 08:24 | CM.DANOTE ---
Initial DCP Assessment Note. Review EMR and PT Interview. Met with patient at bedside to discuss discharge needs.PT is alert x 4 sitting up in bed eating. No acute distress. Patient lives independently with significant other, Layla Gibbons, at home. Patient is starting to establish care in the area. Patient also ran out of his medications recently. Payor:? Medicaid PCP: None. [email or web address] info provided. Summary & Plan:?44 y/o male arrived to ED via EMS. Admitted to INPT Dx. CHF. Plan: Discharge Planning/Care Management CM Discharge Assessment Start: 03/27/25 02:03 Freq: Status: Active Protocol: Document 03/27/25 08:19 SM (Rec: 03/27/25 08:24 SM [id number]) Discharge Planning Assessment Assigned Discharge Mariah Mckeon RN CM [employer] Provider In progress. Insurance Medicaid Insurance Comment [email or web address] info provided. Advance Directives? No History Provided By Patient Has Patient been No admitted in last 30 days? Prior Living House Arrangements Household Members significant other Comment Next of KIN: Layla Gibbons, local relative. Not able to recall ph#. Type of Drives own vehicle transporation used prior to admit Comment Layla will take patient home upon discharge. Independent with ADL Yes 's Is patient alert and Yes oriented? Caregiver for No Another Barriers to No Discharge Discharge Plan Home Referrals Initiated Other Additional Comment See prior note for PCP. Review Status In Process Please Provide Date 03/27/25 Initial DC Assessment Was Performed Next Review Type Continued Stay Review
[2025-03-27] MEDS: METOPROLOL IR 25 MG TABLET PO (08:46)
[2025-03-27] MEDS: FUROSEMIDE 40 MG/4 ML VIAL IV (08:46)
[2025-03-27] MEDS: SPIRONOLACTONE 25 MG TABLET PO (08:46)
[2025-03-27 09:00] LABS: Troponin I 0.116 ng/mL (0.01-0.034)
--- NOTE | 2025-03-27 13:40 | P.DS_ITS ---
History of Present Illness History of Present Illness Chief complaint: SOB, Abdominal Pain, Vomiting, Nausea Narrative: From night doctor: The pt is a 44 yo with a hx of some type of heart surgery at age 15 (possibly VSD) who was hospitalizated at [place] on year ago and saw cardiology there but has not followed up with any provider since and ran out of his medications about one month ago. He now has a pressure like sensation in the right side of his chest for the past 3 days. There has been no cough, fever, productive sputum, change in weight, chest pain. S: He feels much better after diuresis in his back to his baseline. He apparently was admitted for heart failure 1 time in the past but has not seen Cardiology. O: NAD, alert and oriented. Fluent speech. Lungs are clear, normal rate and effort. Heart is regular, no murmur gallop or rub. Abdomen is soft, non distended. Extremities are free of edema. ECG: Intervals [place] Rate: 83 P: 5 [place]: 178 QRS: -39 QRSD: 92 T: 108 QT: 420 QTc: 493 Interpretive Statements Normal sinus rhythm Left axis deviation T wave abnormality, consider lateral ischemia Prolonged QT CTAP: Small volume ascites. No other acute abdominopelvic process identified. Please see separately dictated CT chest PE for additional findings. Chest CTA: No pulmonary embolus. Dilated main pulmonary artery measuring up to 3.7 in caliber which may represent pulmonary hypertension. Cardiomegaly. Large heart by my read. CXR: WNL by my read. A/P: 1. CHF exacerbation (type unknown, ECHO pending), active. 2. Congenital heart disease, active. PLAN: -ECHO (EF 15%) -diuresis Discharge Providers Provider Date of admission: 03/27/25 01:50 Discharge Date: 03/27/25 Primary care physician: Doctor Kiran MD Consults: 03/27/25 01:51 Consult to Cardiology Routine Comment: Consulting Provider: Meliton Jon Reason for consultation: CHF admit Has provider been notified: Yes 03/27/25 02:20 Consult to Physician Routine Comment: Consulting Provider: Meliton Jon Reason for consultation: chf Has provider been notified: No Discharge provider: Stan Arellano MD Summary Hospital Course Discharge Diagnosis: 1. Actuce systolic heart failure exacerbation, improved. 2. Methamphetamine use, active. 3. Congenital heart disease, active. Hospital Course: He was admitted and diuresed. Echo revealed EF of 15% with global hypokinesis. This is likely consistent with his history of meth use. This was discussed with him and he notes that he was using very little least days. 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 Jon. I did briefly communicate information to Dr. Jon and provide the patient with his number to set up a direct follow up appointment. The patient will be started on basic initial evidence based medication for systolic heart failure and the importance of avoiding methamphetamines was emphasized. Status at Discharge Cognitive/behavioral status at discharge: oriented Functional status at discharge: independent ambulation Overall status at discharge: patient is back to baseline Time Spent with Patient Time spent: Greater than 30 minutes Exam Vital Signs (past 8 hours): - 03/27/25 06:16 03/27/25 10:00 03/27/25 10:00 Temperature 97.8 F Pulse Rate 75 Respiratory Rate 15 Blood Pressure 110/79 Pulse Oximetry 95 99 Oxygen Delivery Method Room Air Room Air Oxygen Flow Rate 0 0 0 Oxygen Delivery Method Room Air Oxygen Flow Rate 0 Narrative Exam Narrative: NAD, alert and oriented. Fluent speech. Lungs are clear, normal rate and effort. Heart is regular, no murmur gallop or rub. Abdomen is soft, non distended. Extremities are free of edema. Objective ECG Impression: Normal sinus rhythm Left axis deviation T wave abnormality, consider lateral ischemia Prolonged QT Imaging Multiple studies:: Radiologist's impression: CXR: No acute cardiopulmonary abnormality is seen. ECHO: The left ventricle is moderate-severely dilated. There is a moderate size apical thrombus. Apical thrombus measuring 1.2cm x 0.8cm. Left ventricular systolic function is severely reduced. Left ventricular ejection fraction is estimated to be 15 +/- 5%. The right ventricle is moderately dilated. Right ventricular systolic function is mild to moderately reduced. There is moderate to severe tricuspid regurgitation. The right ventricular systolic pressure is estimated to be at least 47 mmHg based on an estimated right atrial pressure of 15 mm Hg. There is moderate mitral regurgitation. There is mild aortic regurgitation. Chest CTA: No pulmonary embolus. Dilated main pulmonary artery measuring up to 3.7 in caliber which may represent pulmonary hypertension. Cardiomegaly. CTAP: Small volume ascites. No other acute abdominopelvic process identified. Please see separately dictated CT chest PE for additional findings. Labs 03/26/25 20:25 03/26/25 20:25 Labs: Laboratory Results - last 24 hr 03/26/25 03/26/25 03/27/25 20:25 23:06 02:30 WBC 8.2 RBC 5.12 Hgb 15.3 Hct 45.5 MCV 88.9 MCH 29.8 MCHC 33.6 RDW 15.3 H Plt Count 166 Neut % (Auto) 60.0 Lymph % (Auto) 29.6 [place] % (Auto) 8.5 Eos % (Auto) 1.1 L Baso % (Auto) 0.8 Neut # (Auto) 4900 Lymph # (Auto) 2400 [place] # (Auto) 700 Eos # (Auto) 100 Baso # (Auto) 100 PT 12.9 H INR 1.1 D-Dimer 2724 H Sodium 139 Potassium 4.5 Chloride 109 H Carbon Dioxide 25 BUN 22 H Creatinine 1.19 Estimated GFR > 60 BUN/Creatinine Ratio 18.5 Glucose 99 Hemoglobin A1c Lactate 1.4 Calcium 8.9 Total Bilirubin 1.8 H AST 63 H ALT 70 H Alkaline Phosphatase 88 Troponin I 0.257 H* 0.204 H* 0.167 H* NT-Pro-B Natriuret Pep 54522 H Total Protein 7.0 Albumin 3.9 Globulin 3.1 Albumin/Globulin Ratio 1.3 U Opiates 300ng/mL cut Ur Oxycodone Screen Urine Methadone Screen Ur Barbiturates Screen U Tricyclic Antidepress Ur Phencyclidine Scrn Ur Amphetamines Screen U Methamphetamines Scrn Ur MDMA Scrn (Ecstasy) U Benzodiazepines Scrn Urine Cocaine Screen U Marijuana (THC) Screen Urine pH Urine Specific [place] Ur Creatinine 03/27/25 03/27/25 03/27/25 05:38 06:00 08:30 WBC RBC Hgb Hct MCV MCH MCHC RDW Plt Count Neut % (Auto) Lymph % (Auto) [place] % (Auto) Eos % (Auto) Baso % (Auto) Neut # (Auto) Lymph # (Auto) [place] # (Auto) Eos # (Auto) Baso # (Auto) PT INR D-Dimer Sodium Potassium Chloride Carbon Dioxide BUN Creatinine Estimated GFR BUN/Creatinine Ratio Glucose Hemoglobin A1c 6.2 H Lactate Calcium Total Bilirubin AST ALT Alkaline Phosphatase Troponin I 0.116 H NT-Pro-B Natriuret Pep Total Protein Albumin Globulin Albumin/Globulin Ratio U Opiates 300ng/mL cut Positive H Ur Oxycodone Screen Negative Urine Methadone Screen Negative Ur Barbiturates Screen Negative U Tricyclic Antidepress Negative Ur Phencyclidine Scrn Negative Ur Amphetamines Screen Negative U Methamphetamines Scrn Positive H Ur MDMA Scrn (Ecstasy) Negative U Benzodiazepines Scrn Negative Urine Cocaine Screen Negative U Marijuana (THC) Screen Positive H Urine pH TNP Urine Specific [place] TNP Ur Creatinine TNP PFSH Social History household members: significant other Smoking Status: Current every day smoker alcohol intake: former Discharge Assessment & Plan Assessment and Plan Assessment: 1. Actuce systolic heart failure exacerbation, improved. 2. Methamphetamine use, active. Plan of Treatment: Discharged on metoprolol, lisinopril, Lasix, and potassium. He was encouraged to follow up with Cardiology next week and contact me she would include was given to him. In addition, he was asked to consider avoiding methamphetamines. Discharge Plan Discharge Plan Patient Disposition: Home Provider Discharge Comment: Stable for discharge home with close cardiology follow up. Discharge orders & Medications Prescriptions: New metoprolol succinate 25 mg tablet extended release 24 hr 12.5 mg PO DAILY Qty: 30 2RF lisinopril 2.5 mg tablet 2.5 mg PO DAILY Qty: 30 2RF furosemide [Lasix] 20 mg tablet 20 mg PO DAILY Qty: 30 1RF potassium chloride 10 mEq capsule, extended release 10 meq PO DAILY Qty: 30 1RF Medication counseling provided by Pharmacist: No Follow up/Referrals: Meliton Jon MD [Physician, Cardiology] Doctor Beck MD [Primary Care Provider, Medical] Diet/Activity/Treatments Diet: Low-sodium Visit Report/Discharge Packet Instructions: DI for Heart Failure, DI for Prescription Opioid Use Stand Alone Forms: Patient Portal/API, Stroke Signs & Symptoms Discharge Data Primary Care Provider: Doctor Kiran Attending Provider: Ciro Azar Admit Date/Time: 03/27/25 01:50
--- NOTE | 2025-03-27 14:35 | CM.DPC ---
Per Chart Review: Medically Stable for Discharge. Follow Up with Dr. Jon, Cardiology. No further discharge needs at this time.
== END 2025-03-27 14:50 | disposition home or self-care (01) ==
LOC: ED 03-27 01:50 → AC 03-27 01:50
PROVIDERS: Admitting Provider Internal Medicine; Emergency Provider Emergency Medicine; Referring Provider Emergency Medicine; Visit Provider Internal Medicine
DX: I50.21 Acute systolic (congestive) heart failure (principal); R06.02 Shortness of breath; R79.89 Other specified abnormal findings of blood chemistry; Q24.9 Congenital malformation of heart, unspecified; F15.129 Other stimulant abuse with intoxication, unspecified; F17.210 Nicotine dependence, cigarettes, uncomplicated; Z71.51 Drug abuse counseling and surveillance of drug abuser
CPT/HCPCS: 36415; 71045; 71275; 74177; 80053; 80305; 83036; 83605; 83880; 84484; 85025; 85379; 85610; 93005; 93306; 96374; 96375; 96376; 99284; G0378; J1938; J2270; J2405; Q9967

== ENCOUNTER 2025-04-16 19:45 | Emergency (ER) | payer OTHER, SELFPAY ==
[2025-03-27 02:03] VITALS: BMI 24.3
[2025-04-16] VITALS (22 sets, daily range): BP systolic 103–124; BP diastolic 53–91; PULSE 67–75; RESP 15–34; TEMP 37.2; O2SAT 94–100; BMI 23.5
--- NOTE | 2025-04-16 19:54 | EKG_ITS ---
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
--- NOTE | 2025-04-16 19:57 | DI.RAD.S_ITS ---
1PROCEDURE: XR CHEST 1V INDICATIONS: Chest Pain TECHNIQUE: One view of the chest was acquired. COMPARISON: [facility], CR, XR CHEST 1V, 03/26/2025, 20:14. [facility], CR, XR CHEST 1V, 12/30/2023, 22:33. FINDINGS: Surgical changes and devices: Median sternotomy wires. Lungs and pleura: Lungs are clear. No pleural effusions or pneumothorax. Mediastinum: Mediastinal contours appear normal. Heart size is enlarged, stable. Bones and chest wall: No suspicious bony lesions. Overlying soft tissues appear unremarkable. IMPRESSION: No acute cardiopulmonary abnormality is seen. Dictated by: Aniceto Oswald M.D. on 04/16/2025 at 20:34 Approved by: Aniceto Oswald M.D. on 04/16/2025 at 20:35
[2025-04-16 20:28] LABS: Add Manual Diff / Slide Review NO; Hematocrit 44.5 % (41-53); Hemoglobin 15.0 g/dL (13.5-17.5); Lymphocytes Absolute Auto 2000 /uL (1100-4500); Mean Corpuscular HGB Conc 33.6 % (30-36); Mean Corpuscular Hemoglobin 29.9 PG (26-34); Mean Corpuscular Volume 88.9 fL (80-100); Platelet Count 140 X10^3/uL (150-400)
[2025-04-16 20:35] LABS: INR 1.2 (0.9-1.3); Prothrombin Time 13.9 SECONDS (9.4-12.5)
[2025-04-16 20:37] LABS: PTT Partial Thromboplastin Tim 26 SECONDS (25.1-36.5)
[2025-04-16 20:38] LABS: Alanine Aminotransferase 74 IU/L (<50); Albumin 3.9 g/dL (3.5-5.0); Albumin Globulin Ratio 1.3 (1.0-2.8); Alkaline Phosphatase 80 U/L (38-126); Blood Urea Nitrogen 32 mg/dL (9-20); Calcium 9.2 mg/dL (8.4-10.2); Carbon Dioxide 24 mmol/L (22-32); Chloride 108 mmol/L (98-107); Creatine Kinase 94 U/L (55-170); Estimated Glomerular Filt Rate > 60 mL/min (>60); Globulin 2.9 g/dL (1.7-4.1); Glucose 116 mg/dL (70-99); HEMOLYSIS < 15 (0-50); Lipase 150 U/L (23-300); Magnesium 1.6 mg/dL (1.6-2.3); Potassium 3.9 mmol/L (3.4-5.1); Sodium 138 mmol/L (137-145); Total Protein 6.8 g/dL (6.3-8.2)
--- NOTE | 2025-04-16 20:42 | DI.CT.S_ITS ---
PROCEDURE: CT ANGIO CHEST PE PROTOCOL INDICATIONS: sob TECHNIQUE: After the administration of intravenous contrast, 2 mm thick sections acquired from the pulmonary apices to the posterior costophrenic angles. 3-dimensional maximum intensity projection (MIP) coronal and sagittal reformats were then acquired through the thorax. For radiation dose reduction, the following was used: automated exposure control, adjustment of mA and/or kV according to patient size. COMPARISON: [facility], CT, CT ANGIO CHEST PE PROTOCOL, 03/26/2025, 22:18. FINDINGS: Image quality: Diagnostic. Pulmonary arteries: Dilated main pulmonary artery measuring 3.4 cm. No filling defects. Lower Neck: No enlarged lymph nodes. Thyroid: No thyroid nodules which require sonographic follow up, per consensus guidelines. Axillae: No enlarged lymph nodes. Chest Wall: Unremarkable. Bones: Median sternotomy wires. Mild degenerative changes. Lungs and Pleura: No pneumothorax or pleural effusions. No consolidation or suspicious nodules. Mild dependent atelectasis. Linear atelectasis versus scarring at the left lung base. Heart: Heart size is enlarged. Reflux of contrast into the IVC.. No pericardial effusion. Thoracic Vessels: No aortic aneurysm. Mediastinum and [place]: No enlarged lymph nodes. Esophagus: No wall thickening. No hiatal hernia. Upper Abdomen: Visualized upper abdomen solid organs and bowel loops appear normal. IMPRESSION: No pulmonary embolus. No acute pulmonary process. Dilated main pulmonary artery, suggestive of pulmonary hypertension. Cardiomegaly with reflux of contrast into the IVC, correlate for elevated right heart pressures. Approved by: Aniceto Oswald M.D. on 04/16/2025 at 21:16
--- NOTE | 2025-04-16 20:43 | ED_ITS ---
HPI - SOB/Dyspnea General Chief Complaint: Shortness of Breath/Dyspnea Stated Complaint: chest pain, sob, weakness Time Seen by Provider: 04/16/25 20:03 Source: patient Mode of arrival: Wheelchair Limitations: no limitations History of Present Illness HPI Narrative: 44-year-old male with a history of heart surgery at the age of 15 in [place] for a murmur unclear of etiology, history of congestive heart failure, history of noncompliance and follow up. Patient has been seen here in the ER less than a month ago for congestive heart failure in shortness of breath. He did not make an attempt to follow up with Cardiology Dr. Jon's office but never got a call back to schedule an appointment. Patient does have a history of alcoholism and methamphetamine in the past. He still smokes a few cigarettes a day. His med list includes some blood pressure medications including lisinopril and metoprolol. Today he shows up due to worsening chest pain that started yesterday afternoon and progressively is getting worse in the center of his chest it feels like a heavy pressure and something lay on top of his chest. The pain is still existent currently. Related Data Previous Rx's ?Medication ?Instructions ?Recorded furosemide 20 mg tablet (Lasix) 20 mg PO DAILY #30 tab s 03/27/25 lisinopril 2.5 mg tablet 2.5 mg PO DAILY #30 tabs metoprolol succinate 25 mg 12.5 mg (1/2 x 25 mg) PO DA ANDREI #30 03/27/25 tablet,extended release 24 hr tabs potassium chloride 10 mEq 10 meq PO DAILY #30 caps capsule,extended release Allergies Allergy/AdvReac Type Severity Reaction Status Date / Time No Known Drug Allergies Allergy Verified 04/16/25 19:50 Review of Systems Review of Systems ROS Unobtainable: All systems reviewed & are unremarkable except as noted in HPI and below Patient History Social History household members: significant other Smoking Status: Current every day smoker alcohol intake: former Smoking Status: Current every day smoker tobacco type: cigarettes Exam Narrative Exam Narrative: General: Patient appears to be in pain with substernal pressure. Head: normocephalic, atraumatic, HEENT: Pupils equal round reactive, eyes tracking well, neck supple, no JVD Heart: regular rate and rhythm, no murmurs, rubs, or gallops heard Lungs: clear to auscultation, no adventitious sounds Abdomen: soft , nontender, nondistended, positive bowel sounds Neurological: no focal neurological signs, moving all extremities well, alert and oriented x3, Psych: good judgment ,good insight, mood is normal. Initial Vital Signs Initial Vital Signs: Vital Signs Temperature 99.0 F 04/16/25 19:50 Pulse Rate 71 04/16/25 19:50 Respiratory Rate 26 H 04/16/25 19:50 Blood Pressure 111/79 04/16/25 19:50 Pulse Oximetry 100 04/16/25 19:50 Oxygen Delivery Method Room Air 04/16/25 19:50 Scores HEART Score Heart Score history: Highly Suspicious Heart Score EKG: Non-Specific repolarization disturbance Heart Score Age: < 45 years old Heart Score risk factors: 1-2 risk factors Heart Score troponin: 1-3 times normal limit Heart Score Total: 5 Course Orders Ordered: ED Orders 04/16/25 20:42 CT angio chest PE protocol Stat 04/16/25 22:20 Troponin I Stat 04/16/25 22:30 EKG-12 Lead Stat Heparin Sodium/Dextrose (Heparin Drip) 25,000 unit in 500 mls @ 16.329 mls/hr IV CONT FEROZ; Protocol Last Admin: 04/17/25 00:10 Dose: 12 units/kg/hr, 16.329 mls/hr Documented By: LUZ ELENA Co-signed By: FLORENCE Morphine Sulfate (Morphine 2 Mg/Ml Inj) 2 mg IV Q2HR PRN PRN Reason: Pain, Moderate (4-6) Last Admin: 04/16/25 20:53 Dose: 2 mg Documented By: LUZ ELENA Discontinued Medications Aspirin (Aspirin Ec 325 Mg Tablet) 244 mg PO NOW ONE Stop: 04/16/25 21:59 Last Admin: 04/16/25 22:12 Dose: Not Given Documented By: LUZ ELENA Aspirin (Aspirin 81 Mg Chew Tab) 324 mg PO NOW ONE Stop: 04/16/25 22:13 Last Admin: 04/16/25 22:17 Dose: 243 mg Documented By: LUZ ELENA Al Hydrox/Mg Hydrox/Simethicone 30 ml/ Lidocaine HCl 15 ml 0 ml PO NOW ONE Stop: 04/16/25 23:44 Last Admin: 04/17/25 00:08 Dose: 45 ml Documented By: RLC Furosemide (Furosemide 40 Mg/4 Ml Vial) 40 mg IV NOW ONE Stop: 04/16/25 21:31 Last Admin: 04/16/25 22:11 Dose: 40 mg Documented By: RLC Heparin Sodium (Porcine) (Heparin 5,000 Unit/Ml Vial) 4,000 unit 60 unit/kg (4000 unit) IV NOW ONE Stop: 04/16/25 23:46 Last Admin: 04/17/25 00:08 Dose: 4,000 unit Documented By: RLC Morphine Sulfate (Morphine 4 Mg/Ml Inj) 4 mg IV NOW ONE Stop: 04/16/25 21:59 Last Admin: 04/16/25 22:11 Dose: 4 mg Documented By: RLC Nitroglycerin (Nitroglycerin 0.4 Mg Patch) 0.4 mg TOP 0700 ONE Stop: 04/16/25 20:48 Last Admin: 04/16/25 21:16 Dose: 0.4 mg Documented By: RLC Reevaluation(s) Reevaluation #1: Patient continues to have pain and so a nitro patch was ordered. More morphine was also ordered. Reevaluation #2: Upon re-evaluation, patient's pain has subsided down to a 3/10. Time: 01:26 Reevaluation #3: Upon re-evaluation, patient's pain still remains a 3/10 Time: 05:18 Consultations Consultation #1: Dr. dye consulted at [facility] who accepted patient for transfer , suggested nitro drip if pain did not subside Consultation #2: Dr Jon also consulted but due to patient having active chest pain, it was suggested that the patient be acutely transferred somewhere intervention can happen sooner than later. Consultation #3: Dr. rohan infante at [facility] accepted patient for transfer. Vital Signs Vital signs: Vital Signs - 8 hr 04/16/25 21:20 04/16/25 21:20 04/16/25 21:26 Pulse Rate 74 75 Respiratory Rate 25 H 25 H Blood Pressure 109/84 Pulse Oximetry 100 99 Oxygen Delivery Method 04/16/25 21:26 04/16/25 21:30 04/16/25 21:36 Pulse Rate 75 74 Respiratory Rate 20 25 H Blood Pressure 115/82 Pulse Oximetry 100 99 Oxygen Delivery Method 04/16/25 21:36 04/16/25 21:45 04/16/25 21:45 Pulse Rate 74 Respiratory Rate 25 H Blood Pressure 124/53 L 116/88 Pulse Oximetry 100 Oxygen Delivery Method 04/16/25 21:50 04/16/25 21:50 04/16/25 21:55 Pulse Rate 72 Respiratory Rate 24 Blood Pressure 116/89 110/85 Pulse Oximetry 100 Oxygen Delivery Method 04/16/25 21:55 04/16/25 22:00 04/16/25 22:00 Pulse Rate 71 74 Respiratory Rate 27 H 20 Blood Pressure 111/82 Pulse Oximetry 100 100 Oxygen Delivery Method 04/16/25 22:15 04/16/25 22:15 04/16/25 22:30 Pulse Rate 72 74 Respiratory Rate 25 H 26 H Blood Pressure 103/82 Pulse Oximetry 99 97 Oxygen Delivery Method Room Air 04/16/25 22:45 04/16/25 22:45 04/16/25 23:00 Pulse Rate 74 71 Respiratory Rate 34 H 29 H Blood Pressure 119/91 H Pulse Oximetry 99 94 Oxygen Delivery Method Room Air 04/16/25 23:00 04/16/25 23:15 04/16/25 23:15 Pulse Rate 70 Respiratory Rate 23 Blood Pressure 119/87 114/83 Pulse Oximetry 95 Oxygen Delivery Method 04/16/25 23:30 04/16/25 23:30 04/16/25 23:45 Pulse Rate 67 69 Respiratory Rate 15 22 Blood Pressure 121/81 Pulse Oximetry 95 98 Oxygen Delivery Method 04/16/25 23:45 04/17/25 00:00 04/17/25 00:00 Pulse Rate 64 Respiratory Rate 27 H Blood Pressure 119/74 118/83 Pulse Oximetry 98 Oxygen Delivery Method 04/17/25 00:15 04/17/25 00:15 04/17/25 00:30 Pulse Rate 74 72 Respiratory Rate 28 H 20 Blood Pressure 107/78 Pulse Oximetry 99 100 Oxygen Delivery Method 04/17/25 00:31 04/17/25 00:31 04/17/25 00:45 Pulse Rate 74 70 Respiratory Rate 26 H 19 Blood Pressure 123/82 Pulse Oximetry 100 95 Oxygen Delivery Method 04/17/25 00:45 04/17/25 01:00 04/17/25 01:00 Pulse Rate 69 Respiratory Rate 25 H Blood Pressure 118/72 117/73 Pulse Oximetry 92 Oxygen Delivery Method 04/17/25 01:15 04/17/25 01:15 04/17/25 01:30 Pulse Rate 70 71 Respiratory Rate 24 17 Blood Pressure 111/76 Pulse Oximetry 92 97 Oxygen Delivery Method 04/17/25 01:30 04/17/25 01:45 04/17/25 01:45 Pulse Rate 65 Respiratory Rate 14 Blood Pressure 111/74 110/74 Pulse Oximetry 97 Oxygen Delivery Method 04/17/25 02:00 04/17/25 02:00 04/17/25 02:30 Pulse Rate 73 67 Respiratory Rate 22 16 Blood Pressure 107/73 Pulse Oximetry 92 99 Oxygen Delivery Method 04/17/25 02:30 04/17/25 03:00 04/17/25 03:00 Pulse Rate 66 Respiratory Rate 20 Blood Pressure 114/81 111/78 Pulse Oximetry 99 Oxygen Delivery Method 04/17/25 03:30 04/17/25 03:31 04/17/25 03:31 Pulse Rate 70 74 Respiratory Rate 0 L 23 Blood Pressure 159/81 H Pulse Oximetry 99 98 Oxygen Delivery Method 04/17/25 04:00 04/17/25 04:00 04/17/25 04:30 Pulse Rate 71 68 Respiratory Rate 35 H 12 Blood Pressure 123/87 Pulse Oximetry 98 98 Oxygen Delivery Method 04/17/25 04:30 Pulse Rate Respiratory Rate Blood Pressure 119/74 Pulse Oximetry Oxygen Delivery Method MDM - SOB/Dyspnea Lab Data 04/16/25 20:15 04/16/25 20:15 Labs: Lab Results 04/16/25 04/16/25 Range/Units 20:15 22:20 WBC 7.9 (4.5-11.0) X10^3/uL RBC 5.01 (4.5-5.9) X10^6/uL Hgb 15.0 (13.5-17.5) g/dL Hct 44.5 (41-53) % MCV 88.9 (80-100) fL MCH 29.9 (26-34) PG MCHC 33.6 (30-36) % RDW 15.2 H (11.6-14.8) % Plt Count 140 L (150-400) X10^3/uL Neut % (Auto) 66.2 (50-75) % Lymph % (Auto) 25.6 (25-40) % [place] % (Auto) 6.9 (3-14) % Eos % (Auto) 0.7 L (2-4) % Baso % (Auto) 0.6 (0-2) % Neut # (Auto) 5200 (5362-7989) /uL Lymph # (Auto) 2000 (4744-5985) /uL [place] # (Auto) 500 (0-900) /uL Eos # (Auto) 100 (0-450) /uL Baso # (Auto) 100 (0-100) /uL PT 13.9 H (9.4-12.5) SECONDS INR 1.2 (0.9-1.3) APTT 26 (25.1-36.5) SECONDS Sodium 138 (137-145) mmol/L Potassium 3.9 (3.4-5.1) mmol/L Chloride 108 H (98-107) mmol/L Carbon Dioxide 24 (22-32) mmol/L BUN 32 H (9-20) mg/dL Creatinine 1.19 (0.66-1.25) mg/dL Estimated GFR > 60 (>60) mL/min BUN/Creatinine Ratio 26.9 H (6-22) Glucose 116 H (70-99) mg/dL Calcium 9.2 (8.4-10.2) mg/dL Magnesium 1.6 (1.6-2.3) mg/dL Total Bilirubin 1.1 (0.2-1.3) mg/dL AST 87 H (17-59) IU/L ALT 74 H (<50) IU/L Alkaline Phosphatase 80 (38-126) U/L Total Creatine Kinase 94 (55-170) U/L Troponin I 0.341 H* 0.375 H* (0.01-0.034) ng/mL NT-Pro-B Natriuret Pep 01307 H (<125) pg/mL Total Protein 6.8 (6.3-8.2) g/dL Albumin 3.9 (3.5-5.0) g/dL Globulin 2.9 (1.7-4.1) g/dL Albumin/Globulin Ratio 1.3 (1.0-2.8) Lipase 150 (23-300) U/L Imaging Data CT scan - chest: Radiologist's Impression: No pulmonary embolus. No acute pulmonary process. Dilated main pulmonary artery, suggestive of pulmonary hypertension. Cardiomegaly with reflux of contrast into the IVC, correlate for elevated right heart pressures. Chest x-ray: Radiologist's Impression: No acute cardiopulmonary abnormality is seen. ECG Data Interpretation: EKG showed a left axis deviation, normal sinus rhythm, left ventricular hypertrophy. Rate is 71 beats per minute. MO intervals normal. Some T-wave inversions noted in lateral leads. Previous EKG showed a normal sinus rhythm left axis deviation along with T-wave abnormalities in lateral leads. No significant changes. MDM Narrative Medical decision making narrative: 44-year-old male who presents with severe substernal chest pain and pressure that is finally relenting with 6 mg of morphine and a nitro patch. Patient's vital signs are stable. He was started on a heparin drip and an NSTEMI was suspected. Patient will be transferred to [facility] for further intervention. Patient also has a most likely CHF exacerbation. He was given 40 mg IV Lasix here which may have assisted in helping relieve some of this pain. Discharge Plan Departure Patient Disposition: [facility] Clinical Impression: Acute non-ST elevation myocardial infarction (NSTEMI) Congestive heart failure Qualifiers: Heart failure type: unspecified Heart failure chronicity: acute on chronic Q ualified Code(s): I50.9 - Heart failure, unspecified Prescriptions: No Action metoprolol succinate 25 mg tablet extended release 24 hr 12.5 mg PO DAILY Qty: 30 2RF lisinopril 2.5 mg tablet 2.5 mg PO DAILY Qty: 30 2RF furosemide [Lasix] 20 mg tablet 20 mg PO DAILY Qty: 30 1RF potassium chloride 10 mEq capsule, extended release 10 meq PO DAILY Qty: 30 1RF
[2025-04-16 20:50] LABS: NT-proBNP (BNP-Adult 18+) 11000 pg/mL (<125)
[2025-04-16] MEDS: MORPHINE 2 MG/ML INJ IV (20:53)
[2025-04-16 20:57] LABS: Troponin I 0.341 ng/mL (0.01-0.034)
[2025-04-16] MEDS: NITROGLYCERIN 0.4 MG PATCH TOP (21:16)
[2025-04-16] MEDS: MORPHINE 4 MG/ML INJ IV (22:11)
[2025-04-16] MEDS: FUROSEMIDE 40 MG/4 ML VIAL IV (22:11)
[2025-04-16] MEDS: ASPIRIN 81 MG CHEW TAB 324 MG PO (22:17)
--- NOTE | 2025-04-16 22:41 | EKG_ITS ---
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
[2025-04-16 22:59] LABS: Troponin I 0.375 ng/mL (0.01-0.034)
[2025-04-17] VITALS (16 sets, daily range): BP systolic 107–159; BP diastolic 72–87; PULSE 64–74; RESP 0–35; O2SAT 92–100
[2025-04-17] MEDS: MAG HYDROX/ALUMINUM/SIMETH SUS 30 ML, LIDOCAINE VISCOUS 2% 15 ML PO (00:08)
[2025-04-17] MEDS: HEPARIN 5,000 UNIT/ML VIAL 4000 UNIT IV (00:08)
[2025-04-17] MEDS: HEPARIN DRIP 25,000 UNIT/500 ML IV.SOLN 16.329 UNIT IV (00:10)
--- NOTE | 2025-04-17 04:35 | PC.NURSE ---
An attempt has been made to call RN-to-RN report @[phone] w/o answer. certified family mediator notified. Will try to call again.
--- NOTE | 2025-04-17 05:00 | PC.NURSE ---
Another attempt was made to call RN report at provided phone number w/o success. grinder carbon plant notified.
--- NOTE | 2025-04-17 05:00 | PC.NURSE ---
Another attempt was made to call RN report at provided number w/o success. 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
== END 2025-04-17 04:40 | disposition short-term general hospital (02) ==
PROVIDERS: Emergency Provider Family Medicine
DX: I21.4 Non-ST elevation (NSTEMI) myocardial infarction (principal); I50.9 Heart failure, unspecified; R07.9 Chest pain, unspecified; F17.210 Nicotine dependence, cigarettes, uncomplicated
CPT/HCPCS: 36415; 71045; 71275; 80053; 82550; 83690; 83735; 83880; 84484; 85025; 85610; 85730; 93005; 93010; 96374; 96375; 96376; 99284; J1644; J1938; J2270; J2272; Q9967